=== PATIENT | female | born 1945 | race Caucasian/White ===

== ENCOUNTER 2019-11-20 13:13 | Outpatient (CLI) | payer MEDICARE, BC, SELFPAY ==
--- NOTE | ~2019-11-20 | CT_ITS ---
EXAMINATION: CTA chest PE protocol DATE: 11/20/2019 15:23 INDICATION: Malignant neoplasm of left upper lung TECHNIQUE: Computed tomography (CT) of the chest was performed with 100 cc Omnipaque 350 intravenous contrast. Automated exposure control and iterative reconstruction technique were employed. Exam dose: 389.94 mGy-cm total exam DLP. COMPARISON: 05/16/2019 CT chest FINDINGS: There is a soft tissue mass lesion of the left hilar area, with amputation of the left uppe r lobe pulmonary artery, consistent with malignant left upper lobe mass and/or radiation fibrosis, wi th left upper lobe atelectasis. Consider PET/CT scan correlation. Moderately large pericardial effusion. The lungs are otherwise clear. Heart size is within normal limits. No pleural effusion. No thoracic aortic aneurysm or dissection. IMPRESSION: Persistent left upper lobe perihilar mass and/or fibrosis with amputation of the left up per lobe pulmonary artery; consider PET/CT correlation Persistent moderately large pericardial effusion Reviewed, dictated and finalized at [facility]. Reviewed, dictated and finalized at location B. IMPRESSION: Persistent left upper lobe perihilar mass and/or fibrosis with amp utation of the left upper lobe pulmonary artery; consider PET/CT correlation Persistent moderately large pericardial effusion
--- NOTE | ~2019-11-20 | MMUS_ITS ---
EXAMINATION: MM diagnostic joshua RT w john, US breast RT limited HISTORY: Six-month follow-up for probably benign right breast focal asymmetry TECHNIQUE: Craniocaudal, mediolateral, and mediolateral oblique 3-D tomosynthesis images of the right breast were performed and synthetic 2-D images were generated. Spot compression views are also obtai taya. CAD analysis was submitted and interpreted. High resolution limited right breast ultrasound was performed. COMPARISON: 03/24/2019, 03/07/2019, 01/31/2018, 11/17/2016 BREAST PARENCHYMAL COMPOSITION: There are scattered areas of fibroglandular density. FINDINGS: MAMMOGRAPHIC FINDINGS: The previously described focal asymmetry of the upper inner right breast is not definitely identified . There is been no suspicious interval change. ULTRASOUND: There is no evidence of focal abnormal solid or cystic lesion in the vicinity of the previously quest ioned mammographic finding. There is a 4 mm round hypoechoic mass labeled at the 5:00 location near t he nipple with posterior shadowing but no internal vascularity. There is unchanged dense echotexture at the 3:00 location 3 cm from the nipple without discrete mass identified. IMPRESSION: 1. Probably benign right breast findings. 2. Recommend 6 month follow-up right diagnostic mammogram and ultrasound with particular attention to the ultrasound findings. BI-RADS category 3, probably benign findings. Reviewed, dictated and finalized at location A. IMPRESSION: 1. Probably benign right breast findings. 2. Recommend 6 month follow-up right diagnostic mammogram and ultrasound with p articular attention to the ultrasound findings. BI-RADS category 3, probably benign findings.
[2019-11-20 15:18] LABS: Estimated Glomerular Filt Rate 44
[2019-11-21 12:38] LABS: Prothrombin Time 13.2 Seconds (11.1-14.7)
== END 2019-11-20 13:14 | disposition home or self-care (01) ==
PROVIDERS: PCP Internal Medicine; Visit Provider Internal Medicine
DX: R06.02 Shortness of breath (principal); R92.8 Other abnormal and inconclusive findings on diagnostic imaging of breast; R91.8 Other nonspecific abnormal finding of lung field
CPT/HCPCS: 36415; 71275; 76642; 77061; 77065; 85610; G0279; Q9967

== ENCOUNTER 2019-11-21 11:52 | Outpatient (CLI) | payer MEDICARE, BC, SELFPAY ==
[2019-11-21 12:43] LABS: Rheumatoid Factor < 8.6 IU/ML (<12)
[2019-11-21 12:44] LABS: CRP 7.4 mg/dL (<1.0); Creatine Kinase 171 U/L (30-135)
[2019-11-21 12:51] LABS: Erythrocyte Sedimentation Rate 27 mm/hr (0-20)
[2019-11-21 12:53] LABS: Troponin I < 0.012 ng/mL (0.000-0.034)
== END 2019-11-21 11:53 | disposition home or self-care (01) ==
PROVIDERS: PCP Internal Medicine; Visit Provider Internal Medicine
DX: I31.3 Pericardial effusion (noninflammatory) (principal); R06.02 Shortness of breath
CPT/HCPCS: 36415; 82550; 84484; 85652; 86038; 86140; 86430

== ENCOUNTER 2020-01-22 08:55 | Outpatient (CLI) | payer MEDICARE, BC, SELFPAY ==
--- NOTE | ~2020-01-22 | PE_ITS ---
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 Plain 0.236 mCi of 18-fluorodeoxyglucose (18-FDG) was a dministered i.v. Low dose computed tomography (CT) images were acquired from the base of the brain to the proximal thighs for attenuation correction and anatomic localization. Positron emission tomograp hy (PET) images were acquired in the same distribution beginning 83 minutes after injection. The dose -length product (DLP) was 537.78 mGy-cm. COMPARISON: 11/20/2019, 02/06/2019 FINDINGS: Head/neck: No abnormal FDG uptake is identified. Chest: There are chronic left perihilar airspace opacities, which extend into the upper and lower lob es, which are not significantly changed. There is low level FDG activity in the left upper lobe porti on with an SUV max of 2.6. No new nodules or airspace opacities are identified. There is a trace left pleural effusion. A small pericardial effusion is also unchanged. The heart size is normal. Abdomen/pelvis/proximal thighs: Physiologic FDG activity is present in the bowel and urinary tract. T he liver, spleen, pancreas, gallbladder, and adrenal glands are normal. The left kidney is unremarkab le. There is a 3.3 cm cyst of the right kidney. No pathologically enlarged abdominal or pelvic lymph nodes are identified. There is no free intraperitoneal gas or evidence of bowel obstruction. Apparent wall thickening of the urinary bladder is likely related to incomplete distention. Musculoskeletal: No suspicious FDG uptake is identified. Mild uptake in the hips and shoulders likely relates to degenerative change. IMPRESSION: 1. Stable left perihilar airspace opacities, extending into the upper and lower lobes, with low-level FDG uptake. Findings are most consistent with treated malignancy and radiation fibrosis. 2. Small stable pericardial effusion. Reviewed, dictated and finalized at location B. IMPRESSION: 1. Stable left perihilar airspace opacities, extending into the upper and lower lobes, with low-level FDG uptake. Findings are most consistent with treated ma lignancy and radiation fibrosis. 2. Small stable pericardial effusion.
[2020-01-22 09:32] LABS: Glucose Point of Care 115 (65-105)
== END 2020-01-22 08:56 | disposition home or self-care (01) ==
PROVIDERS: PCP Internal Medicine; Visit Provider Internal Medicine Hematology & Oncology
DX: C34.12 Malignant neoplasm of upper lobe, left bronchus or lung (principal); I31.3 Pericardial effusion (noninflammatory)
CPT/HCPCS: 78815; A9552

== ENCOUNTER 2020-05-15 09:42 | Outpatient (CLI) | payer MEDICARE, BC, SELFPAY ==
[2020-05-15 11:00] LABS: Basophils Absolute Auto 0.1 K/mm3 (0.0-0.1); Basophils Percent Auto 0.8 % (0.2-1.2); Eosinophils Absolute Auto 0.2 K/mm3 (0-0.3); Eosinophils Percent Auto 2.5 % (0-4.4); Hematocrit 41.1 % (37.0-47.0); Hemoglobin 13.6 g/dL (12.0-15.0); Immature Granulocyte Absolute 0.02 K/mm3 (0.00-0.031); Immature Granulocyte Percent A 0.3 % (0-0.5); Lymphocytes Absolute Auto 1.35 K/mm3 (0.9-3.2); Lymphocytes Percent Auto 22.8 % (18.3-44.2); Mean Corpuscular HGB Conc 33.1 g/dl (32-36); Mean Corpuscular Hemoglobin 30.8 pg (26-34); Mean Platelet Volume 9.6 fl (7.4-10.4); Monocytes Absolute Auto 0.6 K/mm3 (0.1-0.6); Monocytes Percent Auto 10.2 % (2.6-8.5); Neutrophils Absolute Auto 3.7 K/mm3 (1.3-6.7); Neutrophils Percent Auto 63.4 % (45.5-73.1); Platelet Count Result 232 k/mm3 (150-375); Red Blood Count 4.42 M/mm3 (4.2-5.4); Red Cell Distribution Width 12.7 % (11.5-14.5); White Blood Count 5.9 K/mm3 (4.5-10.0)
[2020-05-15 11:29] LABS: Alanine Aminotransferase 22 U/L (4-35); Albumin Level 4.3 g/dL (3.5-5.1); Alkaline Phosphatase 95 U/L (38-126); Anion Gap 8 mmol/L (8-16); Aspartate Amino Transferase 30 U/L (14-36); Bilirubin,Total 0.5 mg/dL (0.2-1.3); Blood Urea Nitrogen 18 mg/dL (7-17); Calcium 10.1 mg/dL (8.4-10.2); Carbon Dioxide 26 mmol/L (22-30); Chloride 102 mmol/L (98-107); Estimated Glomerular Filt Rate 49; Glucose 108 mg/dL (65-105); Potassium 4.9 mmol/L (3.4-5.0); Sodium 136 mmol/L (137-145)
== END 2020-05-15 09:43 | disposition home or self-care (01) ==
PROVIDERS: PCP Internal Medicine; Visit Provider Internal Medicine Hematology & Oncology
DX: C34.12 Malignant neoplasm of upper lobe, left bronchus or lung (principal)
CPT/HCPCS: 36415; 80053; 85025

== ENCOUNTER 2020-09-13 08:27 | Outpatient (CLI) | payer MEDICARE, BC, SELFPAY ==
[2020-09-13 09:00] LABS: Hemoglobin A1C 5.3 % (<5.7)
[2020-09-13 09:07] LABS: Anion Gap 6 mmol/L (8-16); Blood Urea Nitrogen 21 mg/dL (7-17); Calcium 10.2 mg/dL (8.4-10.2); Carbon Dioxide 28 mmol/L (22-30); Chloride 101 mmol/L (98-107); Cholesterol 199 mg/dL (0-200); Estimated Glomerular Filt Rate 40; Glucose 103 mg/dL (65-105); Sodium 135 mmol/L (137-145); Triglycerides 169 mg/dL (<150)
[2020-09-13 09:09] LABS: HDL Direct 121 mg/dL; LDL Cholesterol Direct 43 mg/dL
[2020-09-13 09:28] LABS: Potassium 4.7 mmol/L (3.4-5.0)
[2020-09-13 09:39] LABS: Add Urine Microscopic? YES; Appearance Urine Cloudy (Clear); Bacteria Urine Trace /hpf; Bilirubin Urine Negative (Negative); Blood Urine Negative (Negative); Color Urine Yellow (Yellow); Glucose Urine UA Negative (Negative); Ketones Urine Negative (Negative); Leukocyte Esterase Ur 3+ LEU/UL (NEGATIVE); Mucus Urine Rare /lpf; Nitrate Urine Positive (Negative); Protein Urine 1+ mg/dL (Negative); Specific Grav Ur 1.014 (1.001-1.035); Squamous Epithelial Cell Urine Few /hpf (Few); Urobilinogen Urine Negative mg/dL (<2.0); WBC Clumps Urine Present /HPF; WBC Urine >75 /hpf (0-3)
[2020-09-13 10:10] LABS: Free T4 Free Thyroxine 0.95 ng/mL (0.78-2.19)
[2020-09-15 18:40] LABS: Homocysteine 11.7 umol/L (<10.4)
[2020-09-16 03:18] LABS: Vitamin D 1,25 (OH)2 Total 27 pg/mL (18-72); Vitamin D2 1,25 (OH)2 <8 pg/mL; Vitamin D3 1,25 (OH)2 27 pg/mL
== END 2020-09-13 08:28 | disposition home or self-care (01) ==
PROVIDERS: PCP Internal Medicine; Visit Provider Internal Medicine
DX: E55.9 Vitamin D deficiency, unspecified (principal); Z79.899 Other long term (current) drug therapy; R79.89 Other specified abnormal findings of blood chemistry; R73.02 Impaired glucose tolerance (oral); I10 Essential (primary) hypertension; E78.2 Mixed hyperlipidemia
CPT/HCPCS: 36415; 80048; 80061; 81001; 82652; 83036; 83090; 84439; 84443; 87077; 87086; 87088; 87186

== ENCOUNTER 2020-11-19 11:22 | Outpatient (CLI) | payer MEDICARE, BC, SELFPAY ==
--- NOTE | ~2020-11-19 | XR_ITS ---
XR chest 2V DATE: 11/19/2020 11:47 INDICATION: Malignant left upper lobe neoplasm TECHNIQUE: 2 views COMPARISON: 11/20/2019 CT pulmonary scan FINDINGS: There is abnormal left suprahilar soft tissue prominence consistent with left upper lobe ma lignancy. There is mild left basilar infiltrate and/or atelectasis. There is volume loss of the left lung compared to the right. Normal heart size. No pleural effusion or pulmonary vascular congestion or pneumothorax. IMPRESSION: Left upper lobe malignancy Mild left basilar infiltrate or atelectasis Reviewed, dictated and finalized at location A.
== END 2020-11-19 11:23 | disposition home or self-care (01) ==
LOC: ANHIMG 11:27
PROVIDERS: PCP Internal Medicine; Visit Provider Internal Medicine Hematology & Oncology
DX: C34.12 Malignant neoplasm of upper lobe, left bronchus or lung (principal)
CPT/HCPCS: 71046

== ENCOUNTER 2020-12-02 13:36 | Outpatient (CLI) | payer MEDICARE, BC, SELFPAY ==
[2020-12-02 13:49] LABS: Basophils Percent Auto 0.5 % (0.2-1.2); Eosinophils Absolute Auto 0.1 K/mm3 (0-0.3); Eosinophils Percent Auto 1.8 % (0-4.4); Hematocrit 40.2 % (37.0-47.0); Hemoglobin 13.3 g/dL (12.0-15.0); Immature Granulocyte Absolute 0.02 K/mm3 (0.00-0.031); Immature Granulocyte Percent A 0.3 % (0-0.5); Lymphocytes Absolute Auto 1.27 K/mm3 (0.9-3.2); Lymphocytes Percent Auto 16.2 % (18.3-44.2); Mean Corpuscular HGB Conc 33.1 g/dl (32-36); Mean Corpuscular Hemoglobin 30.4 pg (26-34); Mean Corpuscular Volume 91.8 fl (80-100); Mean Platelet Volume 9.5 fl (7.4-10.4); Monocytes Absolute Auto 0.7 K/mm3 (0.1-0.6); Monocytes Percent Auto 8.4 % (2.6-8.5); Neutrophils Absolute Auto 5.7 K/mm3 (1.3-6.7); Neutrophils Percent Auto 72.8 % (45.5-73.1); Platelet Count Result 194 k/mm3 (150-375); Red Blood Count 4.38 M/mm3 (4.2-5.4); Red Cell Distribution Width 13.2 % (11.5-14.5); White Blood Count 7.9 K/mm3 (4.5-10.0)
[2020-12-02 13:54] LABS: Blood Urea Nitrogen 30 mg/dL (8-26); Carbon Dioxide 25 mmol/L (22-30); Chloride 100 mmol/L (98-109); Estimated Glomerular Filt Rate 29; Glucose 148 mg/dL (70-105); Potassium 5.3 mmol/L (3.5-4.9); Sodium 134 mmol/L (138-146)
[2020-12-02 16:23] LABS: Alanine Aminotransferase 25 U/L (4-35); Albumin Level 4.3 g/dL (3.5-5.1); Alkaline Phosphatase 82 U/L (38-126); Anion Gap 9 mmol/L (8-16); Aspartate Amino Transferase 29 U/L (14-36); Bilirubin,Total 0.6 mg/dL (0.2-1.3); Blood Urea Nitrogen 28 mg/dL (7-17); Calcium 10.2 mg/dL (8.4-10.2); Carbon Dioxide 25 mmol/L (22-30); Chloride 98 mmol/L (98-107); Estimated Glomerular Filt Rate 34; Glucose 143 mg/dL (65-110); Potassium 5.5 mmol/L (3.4-5.0); Sodium 132 mmol/L (137-145)
== END 2020-12-02 13:37 | disposition home or self-care (01) ==
LOC: ANHLAB 13:39
PROVIDERS: PCP Internal Medicine; Visit Provider Internal Medicine Hematology & Oncology
DX: C34.12 Malignant neoplasm of upper lobe, left bronchus or lung (principal)
CPT/HCPCS: 36415; 80048; 80053; 85025

== ENCOUNTER 2020-12-20 15:43 | Outpatient (CLI) | payer MEDICARE, BC, SELFPAY ==
--- NOTE | ~2020-12-20 | US_ITS ---
EXAMINATION: US renal BI DATE: 12/20/2020 16:25 INDICATION: Decreased kidney function. TECHNIQUE: Multiple ultrasound grayscale images of the kidneys were obtained. COMPARISON: PET CT 01/22/2020 FINDINGS: The right kidney measures 9.0 x 5.2 x 4.0 cm. The left kidney measures 9.3 x 4.6 x 4.4 cm. The kidney s demonstrate normal parenchymal echogenicity. There is a 2.8 cm cyst in right kidney. There is no hy dronephrosis. The bladder is normal. IMPRESSION: 1. Normal kidney sizes. No hydronephrosis. Reviewed, dictated and finalized at location A.
== END 2020-12-20 15:44 | disposition home or self-care (01) ==
LOC: ANHIMG 15:45
PROVIDERS: PCP Internal Medicine; Visit Provider Internal Medicine
DX: R79.89 Other specified abnormal findings of blood chemistry (principal)
CPT/HCPCS: 76775

== ENCOUNTER 2021-01-10 08:51 | Outpatient (CLI) | payer MEDICARE, BC, SELFPAY ==
--- NOTE | ~2021-01-10 | MM_ITS ---
EXAMINATION: MM screening joshua BI w john HISTORY: Screening TECHNIQUE: Craniocaudal and mediolateral oblique 3-D tomosynthesis images were obtained and synthetic 2-D images were generated. CAD analysis was submitted and interpreted. COMPARISON: Comparison to multiple prior studies sequentially, with oldest reviewed study dated 09/2015. BREAST PARENCHYMAL COMPOSITION: There are scattered areas of fibroglandular density. FINDINGS: There is a developing mass in the upper outer quadrant of the right breast, middle third. A dditional bilateral breast asymmetries are stable. No new masses, calcifications or architectural dis tortion in the left breast to suggest malignancy. IMPRESSION: 1. Developing right breast asymmetry, upper outer quadrant middle third. 2. Additional mammographic views and possible breast ultrasound are recommended. BI-RADS Category 0: Incomplete: Needs additional imaging evaluation. Reviewed, dictated and finalized at location A. IMPRESSION: 1. Developing right breast asymmetry, upper outer quadrant middle third. 2. Additional mammographic views and possible breast ultrasound are recommended . BI-RADS Category 0: Incomplete: Needs additional imaging evaluation.
== END 2021-01-10 08:52 | disposition home or self-care (01) ==
PROVIDERS: PCP Internal Medicine; Visit Provider Internal Medicine
DX: Z12.31 Encounter for screening mammogram for malignant neoplasm of breast (principal); R92.8 Other abnormal and inconclusive findings on diagnostic imaging of breast
CPT/HCPCS: 77063; 77067

== ENCOUNTER 2021-05-16 13:36 | Outpatient (CLI) | payer MEDICARE, BC, SELFPAY ==
--- NOTE | ~2021-05-16 | CT_ITS ---
EXAMINATION: CT diagnostic chest wo con EXAM DATE: 05/16/2021 14:13 INDICATION: Malignant Neoplasm Of Upper Lobe Of Left Lung . TECHNIQUE: Spiral CT of the chest without contrast. Axial, coronal and sagittal images of the chest were reviewed. Coronal maximum intensity pixel images of chest reviewed. The dose-length product ( DLP) for this examination was 165.71 mGy-cm. The exposure was tailored according to patient size (au to mA exposure control), and iterative reconstruction (ASIR) was used as additional dose reduction te chnique. Comparison is made to prior examination from 11/20/2019. FINDINGS: Again there is infiltrative left suprahilar centered malignancy, soft tissue surrounding b ronchovascular structures extending into the hilum. Difficult to measure this given its insinuation, but suprahilar component approximately 4.5 x 3.2 cm which is unchanged. Appearance is consistent with treated malignancy. There is a moderate pericardial effusion, with interval improvement compared to prior study. No pleural effusions. There is no mediastinal, hilar or axillary lymphadenopathy. Th ere is no pneumothorax. Heart normal in size. No evidence of coronary arterial calcification. Up per abdomen is unremarkable. There is mild thoracic spondylosis without osteoblastic or osteolytic lesions identified. IMPRESSION: 1. Stable infiltrative right hilar/suprahilar masslike opacity, treated malignancy. 2. Moderate pericardial effusion with mild improvement. Reviewed, dictated and finalized at location A. MECHANICAL ENGINEER IMPRESSION: 1. Stable infiltrative right hilar/suprahilar masslike opacity, treated malign sharif. 2. Moderate pericardial effusion with mild improvement.
== END 2021-05-16 13:37 | disposition home or self-care (01) ==
LOC: ANHIMG 13:39
PROVIDERS: PCP Internal Medicine; Visit Provider Internal Medicine Hematology & Oncology
DX: C34.12 Malignant neoplasm of upper lobe, left bronchus or lung (principal); I31.3 Pericardial effusion (noninflammatory)
CPT/HCPCS: 71250

== ENCOUNTER 2021-05-24 13:41 | Outpatient (CLI) | payer MEDICARE, BC, SELFPAY ==
[2021-05-24 14:13] LABS: Basophils Percent Auto 0.6 % (0.2-1.2); Eosinophils Absolute Auto 0.2 K/mm3 (0-0.3); Eosinophils Percent Auto 2.2 % (0-4.4); Hematocrit 42.6 % (37.0-47.0); Hemoglobin 13.5 g/dL (12.0-15.0); Immature Granulocyte Absolute 0.02 K/mm3 (0.00-0.031); Immature Granulocyte Percent A 0.3 % (0-0.5); Lymphocytes Percent Auto 19.3 % (18.3-44.2); Mean Corpuscular HGB Conc 31.7 g/dl (32-36); Mean Corpuscular Hemoglobin 30.4 pg (26-34); Mean Corpuscular Volume 95.9 fl (80-100); Mean Platelet Volume 9.4 fl (7.4-10.4); Monocytes Absolute Auto 0.7 K/mm3 (0.1-0.6); Monocytes Percent Auto 10.5 % (2.6-8.5); Neutrophils Absolute Auto 4.5 K/mm3 (1.3-6.7); Neutrophils Percent Auto 67.1 % (45.5-73.1); Platelet Count Result 200 k/mm3 (150-375); Red Blood Count 4.44 M/mm3 (4.2-5.4); Red Cell Distribution Width 13.4 % (11.5-14.5); White Blood Count 6.8 K/mm3 (4.5-10.0)
[2021-05-24 14:19] LABS: Blood Urea Nitrogen 29 mg/dL (8-26); Carbon Dioxide 26 mmol/L (22-30); Chloride 101 mmol/L (98-109); Estimated Glomerular Filt Rate 34; Glucose 137 mg/dL (70-105); Potassium 5.2 mmol/L (3.5-4.9); Sodium 136 mmol/L (138-146)
[2021-05-24 16:19] LABS: Alanine Aminotransferase 28 U/L (4-35); Albumin Level 4.4 g/dL (3.5-5.1); Alkaline Phosphatase 92 U/L (38-126); Anion Gap 8 mmol/L (8-16); Aspartate Amino Transferase 42 U/L (14-36); Bilirubin,Total 0.5 mg/dL (0.2-1.3); Blood Urea Nitrogen 29 mg/dL (7-17); Calcium 10.2 mg/dL (8.4-10.2); Carbon Dioxide 26 mmol/L (22-30); Chloride 100 mmol/L (98-107); Estimated Glomerular Filt Rate 34; Glucose 138 mg/dL (65-110); Potassium 5.3 mmol/L (3.4-5.0); Sodium 134 mmol/L (137-145)
== END 2021-05-24 13:42 | disposition home or self-care (01) ==
PROVIDERS: PCP Internal Medicine; Visit Provider Internal Medicine Hematology & Oncology
DX: C34.12 Malignant neoplasm of upper lobe, left bronchus or lung (principal)
CPT/HCPCS: 36415; 80053; 85025

== ENCOUNTER 2021-11-28 15:56 | Outpatient (CLI) | payer MEDICARE, OTHER, SELFPAY ==
--- NOTE | ~2021-11-28 | XR_ITS ---
XR chest 2V DATE: 11/28/2021 16:20 INDICATION: Shortness of breath. History of left lung cancer. TECHNIQUE: PA and lateral views COMPARISON: 05/16/2021 CT chest 11/19/2020 2 view chest FINDINGS: Persistent left upper lobe mass density with left upper lobe atelectasis, elevation of left hilum. No significant change is noted since 11/29/2020. There is some tenting of the left diaphragm and suggestion of some mild atelectasis at the left lung base. The right lung is clear. No right pleural effusion. Heart size is within normal range. No pneumothorax. IMPRESSION: No significant change since 11/19/2020; persistent left upper lobe mass density, left upper lobe atelectasis Reviewed, dictated and finalized at location B. IMPRESSION: No significant change since 11/19/2020; persistent left upper lobe ma ss density, left upper lobe atelectasis
[2021-11-28 17:07] LABS: Basophils Percent Auto 0.5 % (0.2-1.2); Eosinophils Absolute Auto 0.2 K/mm3 (0-0.3); Eosinophils Percent Auto 2.1 % (0-4.4); Hemoglobin 11.9 g/dL (12.0-15.0); Immature Granulocyte Absolute 0.04 K/mm3 (0.00-0.031); Immature Granulocyte Percent A 0.5 % (0-0.5); Lymphocytes Absolute Auto 1.36 K/mm3 (0.9-3.2); Lymphocytes Percent Auto 15.5 % (18.3-44.2); Mean Corpuscular HGB Conc 33.1 g/dl (32-36); Mean Corpuscular Volume 90.7 fl (80-100); Mean Platelet Volume 9.1 fl (7.4-10.4); Monocytes Percent Auto 11.3 % (2.6-8.5); Neutrophils Absolute Auto 6.2 K/mm3 (1.3-6.7); Neutrophils Percent Auto 70.1 % (45.5-73.1); Platelet Count Result 355 k/mm3 (150-375); Red Blood Count 3.97 M/mm3 (4.2-5.4); Red Cell Distribution Width 12.6 % (11.5-14.5); White Blood Count 8.8 K/mm3 (4.5-10.0)
[2021-11-28 17:36] LABS: D Dimer 13.52 ug/mL (<0.48)
== END 2021-11-28 15:57 | disposition home or self-care (01) ==
PROVIDERS: PCP Internal Medicine; Visit Provider Internal Medicine
DX: R06.02 Shortness of breath (principal); R73.02 Impaired glucose tolerance (oral)
CPT/HCPCS: 36415; 71046; 85025; 85380

== ENCOUNTER 2021-11-29 08:31 | Outpatient (CLI) | payer MEDICARE, OTHER, SELFPAY ==
--- NOTE | ~2021-11-29 | CT_ITS ---
EXAMINATION: CTA chest PE protocol DATE: 11/29/2021 09:03 INDICATION: Shortness of breath. Recent travel. TECHNIQUE: Computed tomography angiography (CTA) of the chest was performed with 100 mL Omnipaque-350 intravenous contrast timed to evaluate the pulmonary arteries. Coronal maximum intensity projection 3D-reconstructions were created by the technologist. Automated exposure control and iterative reconst ruction technique were employed. Exam dose: 361.85 mGy-cm total exam DLP. COMPARISON: 11/28/2021 PA and lateral chest 05/16/2021 CT chest FINDINGS: There is diagnostic contrast enhancement of the pulmonary arteries and no evidence of pulmo nary embolism. There is amputation of the left upper lobe pulmonary artery and left upper lobe bronchus by large sof t tissue mass consistent with left upper lobe malignancy, with associated left upper lobe atelectasis . There is moderate pericardial effusion. Mild left and minimal right pleural effusion. Heart size is within normal limits. No thoracic aortic aneurysm or dissection is detected. Right lung is clear. Postobstructive left upper lobe atelectasis. Normal pulmonary infiltrate or cons olidation is noted otherwise. Approximately 9 mm (3.5 cm right renal cysts. Mild bilateral adrenal hypertrophy. Severe degenerative disc disease in lower cervical spine. No suspicious osteolytic or osteosclerotic lesions are noted. IMPRESSION: No evidence of pulmonary aneurysm Large left upper lobe pulmonary malignancy with amputation of left upper lobe pulmonary artery and br onchi can with associated postobstructive left upper lobe atelectasis Moderate pericardial effusion Small pleural effusions, left greater than right Reviewed, dictated and finalized at [facility]. Reviewed, dictated and finalized at location B. IMPRESSION: No evidence of pulmonary aneurysm Large left upper lobe pulmonary malignancy with amputation of left upper lobe p ulmonary artery and bronchi can with associated postobstructive left upper lobe atelectasis Moderate pericardial effusion Small pleural effusions, left greater than right
[2021-11-29 08:57] LABS: Estimated Glomerular Filt Rate 34
== END 2021-11-29 08:32 | disposition home or self-care (01) ==
LOC: ANHIMG 08:34
PROVIDERS: PCP Internal Medicine; Visit Provider Internal Medicine
DX: R06.02 Shortness of breath (principal); R79.89 Other specified abnormal findings of blood chemistry; I31.3 Pericardial effusion (noninflammatory); J90 Pleural effusion, not elsewhere classified
CPT/HCPCS: 71275; Q9967

== ENCOUNTER 2021-12-22 16:50 | Outpatient (CLI) | payer MEDICARE, OTHER, SELFPAY ==
--- NOTE | ~2021-12-22 | US_ITS ---
EXAMINATION:US venous doppler LE BI INDICATION:Abnormal laboratory values. TECHNIQUE: Multiple grayscale, color flow and Doppler images of the right and left lower extremity de ep venous systems were obtained and reviewed. COMPARISON:No prior studies for comparison. FINDINGS: The common femoral, superficial femoral and popliteal veins demonstrate normal respiratory variation, augmentation and compressibility. Color flow is also seen within the posterior tibial, pe roneal, greater saphenous and profunda veins. IMPRESSION: 1: No lower extremity deep venous thrombosis. Reviewed, dictated and finalized at location A.
== END 2021-12-22 16:51 | disposition home or self-care (01) ==
PROVIDERS: PCP Internal Medicine; Visit Provider Internal Medicine
DX: R79.89 Other specified abnormal findings of blood chemistry (principal)
CPT/HCPCS: 93970

== ENCOUNTER 2022-01-03 09:00 | Outpatient (CLI) | payer MEDICARE, OTHER, SELFPAY ==
--- NOTE | ~2022-01-03 | PE_ITS ---
EXAMINATION: PET skull to mid thigh DATE: 01/03/2022 10:49 INDICATION: Malignant neoplasm of the upper lobe of the left lung. TECHNIQUE: Blood glucose level was 130 mg/dL. 10.948 mCi of 18-fluorodeoxyglucose (18-FDG) was admini stered i.v. Low dose computed tomography (CT) images were acquired from the base of the brain to the proximal thighs for attenuation correction and anatomic localization. Positron emission tomography (P ET) images were acquired in the same distribution beginning 66 minutes after injection. Images includ ing fused PET/CT images were reconstructed in axial, coronal, and sagittal planes. Automated exposure control technique was employed. The dose-length product was 757.62mGy-cm. COMPARISON: Chest CT dated 11/29/2021 and PET/CT dated 01/22/2020 FINDINGS: Head/neck: There is symmetric increased activity in the oral cavity and ocular muscles without CT correlate, lik arti physiologic. Mild increased mucosal FDG uptake at the periphery of the completely opacified right maxillary sinus. There is mild thickening and sclerosis of the sinus wills consistent with chronic s inusitis. There is asymmetric thickening of the left vocal cord and left aryepiglottic fold without c orresponding asymmetric increased left-sided FDG uptake. No pathologically enlarged cervical lymphade nopathy or other suspicious foci of increased FDG uptake in the visualized head or neck. Chest: Small bilateral posterior layering pleural effusions, left greater than right. There is volume loss i n the left lung with chronic triangular region of consolidation in the anteromedial left upper lobe c onsistent with treated malignancy and secondary radiation fibrosis. There is persistent relatively un iform mild increased FDG uptake associated with the region of consolidation with maximal SUV of 3.1. No other suspicious pulmonary nodules, pneumonia or pulmonary edema. Heart size is normal. Chronic mo derate sized pericardial effusion without associated increased FDG activity. No pathologically enlarg ed or FDG avid thoracic lymphadenopathy. Abdomen/pelvis/proximal thighs: Physiologic renal accumulation and excretion of FDG activity in the kidneys, bladder and along portio ns of ureters. 4.4 cm right renal cyst. Normal degree and heterogenous pattern of increased uptake th roughout the liver without radiologic correlate or dominant FDG avid lesion. The gallbladder, pancrea s, spleen and bilateral adrenal glands are normal. Mild uptake scattered throughout the bowels withou t radiologic correlate, also likely physiologic. There is moderate colonic diverticulosis with a sigm oid predominance. There is no adjacent inflammatory change to suggest diverticulitis. No other abnor mal foci of increased FDG uptake or pathologically enlarged lymphadenopathy in the abdomen, pelvis or proximal thighs. Musculoskeletal: Scattered degenerative skeletal changes.. Diffuse mild synovial uptake at the glenohumeral joints. Mi ld increased uptake overlying the bilateral greater trochanters consistent with mild trochanteric bur sitis. No suspicious lytic, blastic or FDG avid bone lesions. IMPRESSION: 1. No significant change in relatively uniform mild uptake throughout a region of consolidation with associated volume loss and architectural distortion at the anteromedial left upper lobe consistent wi th chronic treated malignancy with radiation fibrosis. No evident metastatic disease. 2. Nonspecific asymmetric thickening of the left vocal cord and aryepiglottic fold but without focal asymmetric increased FDG uptake to further elevate suspicion for malignancy. Consider bronchoscopy fo r direct visualization. 3. Chronic moderate-sized pericardial effusion. 4. Small bilateral pleural effusions, left greater than right. 5. Chronic right maxillary sinusitis. Reviewed, dictated and f
[2022-01-03 09:20] LABS: Glucose Point of Care 130 mg/dl (65-105)
== END 2022-01-03 09:01 | disposition home or self-care (01) ==
PROVIDERS: PCP Internal Medicine; Visit Provider Internal Medicine Hematology & Oncology
DX: C34.12 Malignant neoplasm of upper lobe, left bronchus or lung (principal)
CPT/HCPCS: 78815; A9552

== ENCOUNTER 2022-01-10 09:20 | Outpatient (CLI) | payer MEDICARE, OTHER, SELFPAY ==
[2022-01-10 10:19] LABS: Appearance Urine Cloudy (Clear); Bilirubin Urine Negative (Negative); Color Urine Yellow (Yellow); Glucose Urine UA 3+ mg/dL (Negative); Ketones Urine Trace mg/dL (Negative); Leukocyte Esterase Ur 2+ LEU/UL (Negative); Nitrate Urine Negative (Negative); Protein Urine 1+ mg/dL (Negative); Specific Grav Ur 1.015 (1.001-1.035); Urobilinogen Urine 0.2 mg/dL (<2.0)
[2022-01-10 10:23] LABS: Bacteria Urine Trace /hpf; Squamous Epithelial Cell Urine Rare /hpf (Few); WBC Urine >75 /hpf
[2022-01-10 10:27] LABS: Add Urine Microscopic? YES; Blood Urine Trace-Intact (Negative)
== END 2022-01-10 09:21 | disposition home or self-care (01) ==
LOC: ANHLAB 09:22
PROVIDERS: PCP Internal Medicine; Visit Provider Internal Medicine
DX: R39.9 Unspecified symptoms and signs involving the genitourinary system (principal)
CPT/HCPCS: 81001; 87077; 87086; 87186

== ENCOUNTER 2022-05-17 13:06 | Outpatient (CLI) | payer MEDICARE, OTHER, SELFPAY ==
--- NOTE | ~2022-05-17 | XR_ITS ---
XR chest 2V DATE: 05/17/2022 13:25 INDICATION: Malignant neoplasm left upper lobe TECHNIQUE: PA and lateral views COMPARISON: 11/29/2021 CTA chest 11/28/2021 2 view chest FINDINGS: Persistent abnormal left suprahilar soft tissue mass density, likely due to combination of left upper lobe pulmonary neoplasm and left upper lobe postobstructive atelectasis. Enlarged cardiac silhouette, which may be due to previously documented pericardial effusion on 022 CT chest examination. There is mild infiltrate or atelectasis at the left lung base, left lower lobe. There is minimal if a ny left pleural effusion. No right pleural effusion. The right lung appears clear. No pulmonary vascu lar congestion or pneumothorax. No suspicious osteolytic or osteoblastic lesions are noted. IMPRESSION: Little interval change since 11/28/2021 Reviewed, dictated and finalized at location B. OL AGE PROGRAM ASSOCIATE
== END 2022-05-17 13:07 | disposition home or self-care (01) ==
LOC: ANHIMG 13:12
PROVIDERS: PCP Internal Medicine; Visit Provider Internal Medicine Hematology & Oncology
DX: C34.12 Malignant neoplasm of upper lobe, left bronchus or lung (principal)
CPT/HCPCS: 71046

== ENCOUNTER 2022-07-31 07:46 | Outpatient (CLI) | payer MEDICARE, OTHER, SELFPAY ==
[2022-07-31 08:54] LABS: Prothrombin Time 12.4 Seconds (11.1-14.7)
[2022-07-31 08:55] LABS: Partial Thromboplastin Time 24.9 SECONDS (22.3-36.8)
[2022-07-31 08:57] LABS: Anion Gap 4 mmol/L (8-16); Blood Urea Nitrogen 20 mg/dL (7-17); Calcium 10.1 mg/dL (8.4-10.2); Carbon Dioxide 28 mmol/L (22-30); Chloride 107 mmol/L (98-107); Estimated Glomerular Filt Rate 40; Glucose 117 mg/dL (65-110); Potassium 5.3 mmol/L (3.4-5.0); Sodium 139 mmol/L (137-145)
== END 2022-07-31 07:47 | disposition home or self-care (01) ==
LOC: ANHSURGERY 07:51
PROVIDERS: Anesthesiology; PCP Internal Medicine; Visit Provider Otolaryngology
DX: E11.9 Type 2 diabetes mellitus without complications (principal); N18.9 Chronic kidney disease, unspecified; Z01.818 Encounter for other preprocedural examination
CPT/HCPCS: 36415; 80048; 85610; 85730

== ENCOUNTER 2022-08-01 01:27 | Day surgery (SDC) | payer MEDICARE, OTHER, SELFPAY ==
[2022-07-21 16:03] VITALS: BMI 25.4
--- NOTE | 2022-07-21 16:15 | PC.NURSE ---
PRE-OP INSTRUCTIONS, PLEASE READ CAREFULLY Report to the Outpatient Waiting Room, entrance under the green pavilion located off [facility], at time _12:30PM_ on date _08/01/22_. Planned Procedure Time: _2:30 PM__. Time changes happen often and if your time is changed the preop area will call you the afternoon before. - You and your visitor will be asked to self-screen and do not enter if you have any COVID symptoms. - Only one visitor is requested with a max of two and NO children visitors are allowed at this time. - The patient visitor may be requested to leave or wait in car when not with patient due to distancing restrictions. - A mask is optional within the hospital at this time. Patients may have clear liquids (water, carbonated beverages, clear teas, apple juice) until 3 hours prior to surgery (1130 AM) with a maximum of 20 ounces. - No food from midnight until time of surgery Take the following medications with a SIP of water the morning of surgery: _ANORO INHALER_ DO NOT STOP ANY OF YOUR OTHER PRESCRIPTION MEDICATIONS PRIOR TO SURGERY ?EXCEPT THE FOLLOWING Medications to discontinue _ASPIRIN PER DR. MAZARIEGOS'S INSTRUCTIONS__, Date to take last dose Please no make-up, nail arabic, hairspray, perfume, deodorant, or body powder the day of surgery. No jewelry (including any body piercings) or valuables the day of surgery, leave them at home. Please take a shower or bath the night before, or the morning of, surgery with an antibacterial soap. Wear comfortable, loose fitting clothing. - Jewelry must be removed prior to entering the operating room. Rings and piercings that are not removed may be cut off. - The hospital will not accept responsibility for valuables. - Please leave all valuables, including medications, at home the day of surgery. If you are going home after surgery, a licensed transportation driver must drive you home. - NO public transportation without another adult if you receive anesthesia. - We recommend that an adult stay with you for 24 hours following discharge. - We also recommend that you do not drive, make important decision, drink alcoholic beverages, or take any drugs that were not prescribed by your health care provider for at least 24 hours after your discharge time. Follow any additional instructions given to you from your surgeon. If you or anyone in your household have experienced Covid symptoms in the past week, please notify your surgeon or the nurse liaison at the phone number below for possible testing. Telephone instructions given to _PATIENT_and asked if any additional questions and then verbalized understanding. Patient advised to call surgeon office or pre surgery nurse liaison [phone] if any additional questions.
--- NOTE | 2022-07-31 07:54 | PM.IMHP ---
H&P: HPI History of Present Illness Date/Time: 07/31/22 07:54 Chief Complaint: Right-sided maxillary sinusitis Narrative: planned procedure Review of Systems Review of Systems: All systems reviewed & are unremarkable except as noted in HPI and below [facility] Past Medical History Medical History Abnormal mammogram Acute ear pain Benign essential hypertension Bilateral hip pain Bilateral leg cramps BMI 25.0-25.9,adult BMI 26.0-26.9,adult BMI 27.0-27.9,adult BMI 28.0-28.9,adult Cardiac murmur Cataracts, bilateral Chronic hoarseness CKD (chronic kidney disease) CKD (chronic kidney disease), stage I COPD (chronic obstructive pulmonary disease) COVID-19 vaccine series completed Diastolic dysfunction DJD (degenerative joint disease), multiple sites Dysfunction of left eustachian tube Dyspepsia Elevated homocysteine Encounter for Medicare annual wellness exam Encounter for routine adult health examination with abnormal findings Encounter for routine adult health examination without abnormal findings Follow up Fungal infection Gastric polyp Hearing loss Hearing loss Hx of cancer of lung Hx of hyperkalemia IGT (impaired glucose tolerance) 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 Pericardial effusion Rash Right shoulder tendonitis Seasonal allergies Sebaceous cyst Sinusitis SOB (shortness of breath) Thyroid nodule UTI (urinary tract infection) UTI symptoms Vitamin D deficiency Vocal cord anomaly Watery eyes Surgical History Surgical History S/P cataract extraction Family History Family History Father Hypertension Family history of elevated blood lipids Cerebrovascular accident Family history of heart disease in male family member before age 55 Family history of hypercholesterolemia Mother Family history of malignant neoplasm of uterus Family history of gastrointestinal disorder Family history of malignant neoplasm Social History Social History Smoking packs per day: 1 Smoking cigarettes per day: 20.0 Years smoked: 10 Smoking pack-years: 10.00 Smoking status: Former smoker Tobacco type: cigarettes Second hand tobacco smoke exposure: No Smoking end date: 05/14/82 Alcohol intake: current Drinks per week: 21 Alcohol use details: 3 GLASSES WINE DAILY Substance use: never Substance use type: does not use Lack of Transportation: No Lack of Food: Never True Current Housing: I Have Housing Concerned About Future Housing: No Difficulty Paying Gas/Electric Bills: No Difficulty Paying for Meds: No Currently Unemployed: No Education: Master's Degree or Higher Difficulty w/ Childcare or Family Care: No Living arrangements: alone Gender identity (if verbalized by the patient): Female Spiritual care concerns: No Meds Home Medications and Allergies Home Medications Medication Instructions Recorded Confirmed Type aspirin 81 mg tablet,delayed 81 mg PO DAILY 04/09/19 07/21/22 History release (Adult Low Dose Aspirin) mecobalamin (vitamin B12) 1,000 1,000 mcg sublingual DAILY 04/09/19 07/21/22 History mcg disintegrating tablet,sublingual folic acid 400 mcg tablet 1.4 mg PO DAILY 07/18/19 07/21/22 History cholecalciferol (vitamin D3) 50 50 mcg PO DAILY 05/19/20 07/21/22 History mcg (2,000 unit) capsule magnesium 250 mg tablet 250 mg PO DAILY 05/19/20 07/21/22 History zinc 50 mg tablet 50 mg PO DAILY 05/19/20 07/21/22 History atorvastatin 80 mg tablet See Rx Instructions .Route 03/23/22 07/21/22 Rx .COMPLEX #90 tabs diltiazem HCl 240 mg capsule,24 See Rx Instructions .Route 06/05/22 07/21/22 Rx hr,extended release (Tiadylt ER) .COMPLEX #90 caps montelukast 10 mg tablet 10 mg PO DAILY #30 tabs 05/15
--- NOTE | 2022-07-31 10:05 | WPDANESEPPF ---
Anes - Initial Pre Proc Eval Procedure: Operation Date: 08/01/22 14:00 Proposed Procedures p Right Endoscopic Maxillary Antrostomy with Tissue Removal, Right Middle Turbinectomy - Gerard Perla MD Date/Time: 07/31/22 10:05 Surgeon: Gerard Perla MD Pre Op Diagnosis: sinusitis Patient Data Age: 77 Gender: F Height: 1.7 m Weight: 73.63 kg Allergies Allergy/AdvReac Type Severity Reaction Status Date / Time brimonidine [From Alphagan P] AdvReac EXTREME Verified 08/01/22 11:05 RED EYES Home Medications Medication Instructions Recorded Confirmed Type aspirin 81 mg tablet,delayed 81 mg PO DAILY 04/09/19 08/01/22 History release (Adult Low Dose Aspirin) mecobalamin (vitamin B12) 1,000 1,000 mcg sublingual DAILY 04/09/19 08/01/22 History mcg disintegrating tablet,sublingual folic acid 400 mcg tablet 1.4 mg PO DAILY 07/18/19 08/01/22 History cholecalciferol (vitamin D3) 50 50 mcg PO DAILY 05/19/20 08/01/22 History mcg (2,000 unit) capsule magnesium 250 mg tablet 250 mg PO DAILY 05/19/20 08/01/22 History zinc 50 mg tablet 50 mg PO DAILY 05/19/20 08/01/22 History atorvastatin 80 mg tablet See Rx Instructions .Route 03/23/22 08/01/22 Rx .COMPLEX #90 tabs diltiazem HCl 240 mg capsule,24 See Rx Instructions .Route 06/05/22 08/01/22 Rx hr,extended release (Tiadylt ER) .COMPLEX #90 caps montelukast 10 mg tablet 10 mg PO DAILY #30 tabs 06/07/22 08/01/22 Rx (Singulair) Glyxambi 10 mg-5 mg tablet See Rx Instructions .Route 06/12/22 08/01/22 Rx (empagliflozin-linagliptin) .COMPLEX #90 tabs doxycycline hyclate 100 mg capsule 100 mg PO DAILY #10 caps 06/21/22 08/01/22 Rx ipratropium bromide 21 mcg (0.03 2 spray intranasal TID #30 mL 07/14/22 08/01/22 Rx %) nasal spray umeclidinium 62.5 mcg-vilanterol See Rx Instructions .Route 07/20/22 08/01/22 Rx 25 mcg/actuation powdr for .COMPLEX #60 ea inhalation (Anoro Ellipta) Patient hx anesthesia problems: none Family hx anesthesia problems: none Results Review: All pre-operative results and documents have been reviewed as part of the pre-operative evaluation. [facility] Past Medical History Medical History Abnormal mammogram Acute ear pain Benign essential hypertension Bilateral hip pain Bilateral leg cramps BMI 25.0-25.9,adult BMI 26.0-26.9,adult BMI 27.0-27.9,adult BMI 28.0-28.9,adult Cardiac murmur Cataracts, bilateral Chronic hoarseness CKD (chronic kidney disease) CKD (chronic kidney disease), stage I COPD (chronic obstructive pulmonary disease) COVID-19 vaccine series completed Diastolic dysfunction DJD (degenerative joint disease), multiple sites Dysfunction of left eustachian tube Dyspepsia Elevated homocysteine Encounter for Medicare annual wellness exam Encounter for routine adult health examination with abnormal findings Encounter for routine adult health examination without abnormal findings Follow up Fungal infection Gastric polyp Hearing loss Hearing loss Hx of cancer of lung Hx of hyperkalemia IGT (impaired glucose tolerance) 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 On assisted drug therapy Pericardial effusion Rash Right shoulder tendonitis Seasonal allergies Sebaceous cyst Sinusitis SOB (shortness of breath) Thyroid nodule UTI (urinary tract infection) UTI symptoms Vitamin D deficiency Vocal cord anomaly Watery eyes Surgical History Surgical History S/P cataract extraction Family History Family History Father Hypertension Family history of elevated blood lipids Cerebrovascular accident Family history of heart disease in male family member before age 55 Family history of hypercholesterolemia Mother Family history of malignant neoplasm of uterus Family history of gastrointestinal disorder Family history of malignant neoplasm Social
[2022-08-01] VITALS (8 sets, daily range): BP systolic 139–161; BP diastolic 65–74; PULSE 60–64; RESP 14–20; TEMP 36.3–36.7; O2SAT 98–100
--- NOTE | 2022-08-01 07:13 | WPDHPUPDATE1 ---
History and Physical Update Update Date/Time: 08/01/22 07:13 History and Physical has been reviewed, including an updated exam of the patient. There are NO changes in the patient's condition. Risks, benefits, and alternatives have been discussed and questions answered. Patient agrees to proceed with procedure.
[2022-08-01] MEDS: ACETAMINOPHEN 500 MG TABLET 1000 MG PO (11:13)
[2022-08-01] MEDS: LACTATED RINGERS 1,000 ML 30 ML IV CONT ×2 (11:40→14:22)
[2022-08-01] MEDS: ceFAZolin 2 GM/D5W 50 ML 2 GM/50 ML BAG IVPB (13:16)
[2022-08-01] MEDS: OXYMETAZOLINE HCL 0.05% NAS 15 ML BTL (*BKC) 1 SPRAY NASAL (13:44)
[2022-08-01] MEDS: LIDO 1%/EPINEPHRINE 1:100,000 20 ML VIAL 10 ML INFILTRATE (13:46)
[2022-08-01 14:08] LABS: Glucose Point of Care 121 mg/dl (65-105)
[2022-08-01] MEDS: oxyCODONE HCL (*CRX) 2.5 MG TAB IR PO (15:21)
--- NOTE | 2022-08-02 10:31 | W.PM.PROC2 ---
Procedure Note - Detailed Date of Procedure 08/02/22 Pre-op Diagnosis sinusitis Right-sided Post-op Diagnosis Same Procedure Performed right-sided endoscopic maxillary antrostomy without tissue removal right-sided middle turbinectomy Surgeon Gerard Perla MD Anesthesia General Indications right-sided maxillary sinusitis and obstructive turbinate Findings copious amounts of purulence in the right maxillary sinus obstructive turbinate removed Description of Procedure patient identified consent verified. Patient brought operating room. Time-out performed. General anesthesia induced endotracheal tube secured airway. Patient prepped reposition 2nd time-out performed. Afrin-soaked pledgets placed in bilateral nasal passages allowed to sit for 5 minutes. Afrin-soaked pledgets removed. 0 degree endoscope utilized. Right side examined. Septal deviation. Turbinate was obstructive well. Turbinate injected with 0.5 cc 1% lidocaine at the stalk middle turbinate removed straight through cut. The stalk was cauterized with Bovie suction electrocautery setting 10-15. Right-sided maxillary antrostomy performed with double ball probe backbiter flagged down biter straight through cut micro debrider copious amounts of purulence were encountered and irrigated until none remained. Bleeding essentially in 25-50 cc max. I performed all dictated portions of procedure. Patient tolerated procedure well no complications care the patient given Anesthesiology. Patient taken to PACU. Estimated Blood Loss 25 Drains No Packing No Pathology None sent Complications No immediate complications Condition Stable Disposition PACU [facility] Billing Surgery - Charge Forward: Surgery Billing
== END 2022-08-01 15:55 | disposition home or self-care (01) ==
PROVIDERS: PCP Internal Medicine; Visit Provider Otolaryngology
PROC: (CPT 31256; principal; 2022-08-01 13:00)
DX: J32.0 Chronic maxillary sinusitis (principal); J34.3 Hypertrophy of nasal turbinates; J30.89 Other allergic rhinitis; B49 Unspecified mycosis; I13.10 Hypertensive heart and chronic kidney disease without heart failure, with stage 1 through stage 4 chronic kidney disease, or unspecified chronic kidney disease; N18.1 Chronic kidney disease, stage 1; J44.9 Chronic obstructive pulmonary disease, unspecified; E78.2 Mixed hyperlipidemia; Z79.51 Long term (current) use of inhaled steroids; Z79.82 Long term (current) use of aspirin; Z87.891 Personal history of nicotine dependence
CPT/HCPCS: 31256; 30999; 82948; A9270; J0330; J0690; J1100; J2250; J2405; J2704; J3010; J7120

== ENCOUNTER → 2022-09-11 13:07 | Outpatient (CLI) | payer MEDICARE, OTHER, SELFPAY ==
--- NOTE | ~2022-09-11 | US_ITS ---
EXAMINATION: US thyroid DATE: 09/11/2022 13:51 INDICATION: Nontoxic single thyroid nodule. TECHNIQUE: Multiple ultrasound images of the thyroid were obtained. COMPARISON: Ultrasound 11/16/2014 FINDINGS: The right thyroid lobe measures 4.6 x 2.5 x 2.0 cm. The left thyroid lobe measures 4.4 x 2.3 x 1.7 c m. In the right thyroid lobe, there is a 1.7 cm mixed cystic and solid, isoechoic, wider than tall n odule with smooth margin without echogenic foci (TI-RADS TR2). In the left thyroid lobe, there is a 1 .5 cm predominantly solid, hypoechoic, wider than tall nodule with ill-defined margin without echogen ic foci (TR4) with interval increase in size. In the left thyroid lobe, there is a 1.1 cm solid, hypo echoic, wider than tall nodule with smooth margin without echogenic foci (TR4) with interval increase in size. There are multiple subcentimeter nodules in the thyroid. IMPRESSION: 1. Multinodular goiter. Ultrasound-guided aspiration of the 1.5 cm left thyroid nodule is recommended . Reviewed, dictated and finalized at location A. IMPRESSION: 1. Multinodular goiter. Ultrasound-guided aspiration of the 1.5 cm left thyroid nodule is recommended.
--- NOTE | ~2022-09-11 | US_ITS ---
EXAMINATION: US carotid duplex BI DATE: 09/11/2022 13:49 INDICATION: Occlusion and stenosis of the bilateral carotid arteries. TECHNIQUE: Grayscale, color Doppler, and pulsed Doppler images of the cervical carotid arteries were obtained. The degree of vessel stenosis is placed in one of the following categories: normal, <50%, 5 0-69%, >=70% but less than near-occlusion, near-occlusion, or total occlusion. Note that percent sten osis relative to normal distal artery lumen diameter is indirectly measured from velocity measurement s as described by Yan, et al. Radiology 2003; 229:340-346. COMPARISON: None. FINDINGS: RIGHT: The right common carotid artery (CCA) peak systolic velocity (PSV) is 70 cm/s. The right internal car otid artery (ICA) PSV is 83 cm/s. The right ICA end-diastolic velocity (EDV) is 18 cm/s. The right IC A/CCA PSV ratio is 1.2. Grayscale and color Doppler images yield an estimate of <50% diameter reducti on from plaque in the ICA. The external carotid artery (ECA) PSV is 38 cm/s. There is antegrade flow in the right vertebral artery. LEFT: The left CCA PSV is 83 cm/s. The left ICA PSV is 43 cm/s. The left ICA EDV is 11 cm/s. The left ICA/C CA PSV ratio is 0.5. Grayscale and color Doppler images yield an estimate of <50% diameter reduction from plaque in the ICA. The ECA PSV is 52 cm/s. There is antegrade flow in the left vertebral artery. IMPRESSION: 1. <50% stenosis in the right internal carotid artery. 2. <50% stenosis in the left internal carotid artery. Reviewed, dictated and finalized at location B.
== END ==
PROVIDERS: PCP Internal Medicine; Visit Provider Internal Medicine
DX: I65.23 Occlusion and stenosis of bilateral carotid arteries (principal); R01.1 Cardiac murmur, unspecified; E04.1 Nontoxic single thyroid nodule; E04.2 Nontoxic multinodular goiter
CPT/HCPCS: 76536; 93880

== ENCOUNTER 2022-10-04 10:27 | Outpatient (CLI) | payer MEDICARE, OTHER, SELFPAY ==
--- NOTE | ~2022-10-04 | XR_ITS ---
EXAM: XR lumbar spine min 4V DATE: 10/04/2022 10:47 HISTORY: no injury lbp with bilat leg pain for 2 weeks . COMPARISON: None available. FINDINGS: Decreased mineralization. Mild lumbar scoliosis. 5 nonrib-bearing lumbar-type vertebral bod ies. Pedicles intact. 3 mm anterolisthesis at L4-5 that remains stable in flexion and extension. Alig nment otherwise normal. Multilevel disc space narrowing and marginal osteophytosis. Multilevel severe mid and lower lumbar facet hypertrophy and sclerosis. IMPRESSION: Osteopenia. Stable grade 1 anterolisthesis at L4-5. Multilevel mild lumbar degenerative d isc disease Multilevel severe lumbar facet arthropathy. Reviewed, dictated and finalized at location K. IMPRESSION: Osteopenia. Stable grade 1 anterolisthesis at L4-5. Multilevel mild lumbar degenerative disc disease Multilevel severe lumbar facet arthropathy.
== END 2022-10-04 10:28 ==
PROVIDERS: PCP Internal Medicine; Visit Provider Internal Medicine
DX: M85.88 Other specified disorders of bone density and structure, other site (principal); M51.36 Other intervertebral disc degeneration, lumbar region
CPT/HCPCS: 72110

== ENCOUNTER → 2022-11-15 09:22 | Outpatient (CLI) | payer MEDICARE, OTHER, SELFPAY ==
--- NOTE | ~2022-11-15 | XR_ITS ---
EXAMINATION: XR sternum min 2V DATE: 11/15/2022 09:36 INDICATION: Midsternal lump. TECHNIQUE: 2 views of the sternum on 3 radiographs were obtained. COMPARISON: PET/CT 01/03/2022 FINDINGS: Bone alignment is normal. No fracture. By CT, the right sternocostal cartilage protrudes mo re anteriorly than the left as a normal variant. IMPRESSION: 1. Normal sternum. Reviewed, dictated and finalized at location A. IMPRESSION: 1. Normal sternum.
== END ==
PROVIDERS: PCP Internal Medicine; Visit Provider Internal Medicine
DX: R22.2 Localized swelling, mass and lump, trunk (principal)
CPT/HCPCS: 71120

== ENCOUNTER → 2023-01-04 10:25 | Outpatient (CLI) | payer MEDICARE, OTHER, SELFPAY ==
--- NOTE | ~2023-01-04 | XR_ITS ---
XR chest 2V 01/04/2023 10:44 Indication: Treated left upper lobe lung cancer Procedure: 2 view chest Comparison: Comparison to multiple prior studies sequentially, with oldest reviewed study dated 01/2021. Findings: Cardiomegaly. Stable masslike density left suprahilar location, likely area of treated todd gnancy. Right lung clear. No significant interval change. No acute focal pneumonia, edema, pleural ef fusion or pneumothorax. Impression: 1: No acute cardiopulmonary disease. 2: Stable masslike density left suprahilar location, likely treated malignancy. Reviewed, dictated and finalized at location L. Impression: 1: No acute cardiopulmonary disease. 2: Stable masslike density left suprahilar location, likely treated malignancy.
== END ==
PROVIDERS: PCP Internal Medicine; Visit Provider Internal Medicine Hematology & Oncology
DX: C34.12 Malignant neoplasm of upper lobe, left bronchus or lung (principal)
CPT/HCPCS: 71046

== ENCOUNTER 2023-01-09 08:56 | Outpatient (CLI) | payer MEDICARE, OTHER, SELFPAY ==
[2023-01-09 09:14] LABS: Basophils Percent Auto 0.7 % (0.2-1.2); Eosinophils Absolute Auto 0.2 K/mm3 (0-0.3); Eosinophils Percent Auto 4.4 % (0-4.4); Hematocrit 44.4 % (37.0-47.0); Hemoglobin 14.5 g/dL (12.0-15.0); Immature Granulocyte Absolute 0.01 K/mm3 (0.00-0.031); Immature Granulocyte Percent A 0.2 % (0-0.5); Lymphocytes Percent Auto 32.9 % (18.3-44.2); Mean Corpuscular HGB Conc 32.7 g/dl (32-36); Mean Corpuscular Hemoglobin 29.8 pg (26-34); Mean Corpuscular Volume 91.4 fl (80-100); Mean Platelet Volume 9.5 fl (7.4-10.4); Monocytes Absolute Auto 0.7 K/mm3 (0.1-0.6); Monocytes Percent Auto 12.4 % (2.6-8.5); Neutrophils Absolute Auto 2.7 K/mm3 (1.3-6.7); Neutrophils Percent Auto 49.4 % (45.5-73.1); Platelet Count Result 199 k/mm3 (150-375); Red Blood Count 4.86 M/mm3 (4.2-5.4); Red Cell Distribution Width 14.6 % (11.5-14.5); White Blood Count 5.5 K/mm3 (4.5-10.0)
[2023-01-09 09:20] LABS: Blood Urea Nitrogen 28 mg/dL (8-26); Carbon Dioxide 22 mmol/L (22-30); Chloride 102 mmol/L (98-109); Estimated Glomerular Filt Rate 40; Glucose 86 mg/dL (70-105); Ionized Calcium (POC) 1.24 mmol/L (1.11-1.31); Potassium 4.5 mmol/L (3.5-4.9); Sodium 135 mmol/L (138-146)
[2023-01-09 10:10] LABS: Alanine Aminotransferase 28 U/L (6-35); Albumin Level 4.2 g/dL (3.5-5.1); Alkaline Phosphatase 103 U/L (38-126); Anion Gap 12 mmol/L (8-16); Aspartate Amino Transferase 32 U/L (14-36); Bilirubin,Total 0.9 mg/dL (0.2-1.3); Blood Urea Nitrogen 28 mg/dL (7-17); Calcium 9.8 mg/dL (8.4-10.2); Carbon Dioxide 23 mmol/L (22-30); Chloride 100 mmol/L (98-107); Estimated Glomerular Filt Rate 40; Glucose 84 mg/dL (65-110); Potassium 4.5 mmol/L (3.4-5.0); Sodium 135 mmol/L (137-145)
== END 2023-01-09 08:57 | disposition home or self-care (01) ==
LOC: ANHLAB 09:01
PROVIDERS: PCP Internal Medicine; Visit Provider Internal Medicine Hematology & Oncology
DX: C34.12 Malignant neoplasm of upper lobe, left bronchus or lung (principal)
CPT/HCPCS: 36415; 80047; 80053; 85025

== ENCOUNTER 2023-02-19 15:36 | Emergency (ER) | payer MEDICARE, OTHER, SELFPAY ==
--- NOTE | ~2023-02-19 | XR_ITS ---
XR knee RT 3V 02/19/2023 16:20 Indication: Right knee pain Procedure: 3 views right knee Comparison: No prior studies for comparison. Findings: There is mild osteoarthritis of the right knee. No fracture or traumatic malalignment. No s ignificant joint effusion. Impression: 1: No acute fracture. Reviewed, dictated and finalized at location B. Impression: 1: No acute fracture.
--- NOTE | ~2023-02-19 | CT_ITS ---
EXAMINATION: CT facial & cervical spine wo DATE: 02/19/2023 16:11 INDICATION: fall, pain TECHNIQUE: Computed tomography (CT) of the maxillofacial region and cervical spine was performed with out intravenous contrast. Automated exposure control and iterative reconstruction technique were empl oyed. The dose-length product was 464.23 mGy-cm. COMPARISON: [facility] 11/29/2021 FINDINGS: CERVICAL: Vertebral Body Alignment: Stable grade 1 anterolisthesis at C6-7. Craniocervical and atlantoaxial alignment: Moderate degenerative change. Alignment intact. Osseous structures/fracture: No evidence of a lytic or blastic process in the visualized spine. No e vidence of acute fracture. Cervical soft tissues: The paraspinal soft tissues planes are maintained. Degenerative changes: Multilevel moderate degenerative disc disease and severe facet arthropathy. Mul tilevel severe bilateral neural foraminal narrowing. Moderate-severe central canal narrowing at C5-6. FACE: Soft Tissues: Frontal soft tissue laceration. Facial bones: No acute fracture. No lytic or blastic process. Eyes: The globes are intact. The soft tissue planes of the orbits are maintained. Bilateral lens re placements. Paranasal Sinuses: The visualized aerated spaces are clear. Foreign Bodies: No radiopaque foreign bodies. Other Findings: Greater than 6 mm groundglass opacity in the right upper lobe. IMPRESSION: No acute fracture or traumatic malalignment in the cervical spine. No acute facial bone fracture. Right upper lobe groundglass opacity, recommend follow-up low-dose CT of the chest in 6-12 months to confirm persistence Reviewed, dictated and finalized at location K. IMPRESSION: No acute fracture or traumatic malalignment in the cervical spine. No acute fac ial bone fracture. Right upper lobe groundglass opacity, recommend follow-up low-dose CT of the ch est in 6-12 months to confirm persistence
--- NOTE | ~2023-02-19 | CT_ITS ---
EXAMINATION: CT brain wo con DATE: 02/19/2023 16:08 INDICATION: trauma . TECHNIQUE: Computed tomography (CT) of the head was performed without intravenous contrast. The mA wa s adjusted according to patient size. Iterative reconstruction technique was employed. The dose-lengt h product was 605.33 mGy-cm. COMPARISON: None. FINDINGS: No acute intracranial hemorrhage or extra-axial fluid collection. No hydrocephalus, mass, or herniation. No acute ischemic infarct. Unremarkable dural venous sinus attenuation. No acute osseous abnormality. Frontal soft tissue laceration. The aerated spaces are clear. IMPRESSION: No acute intracranial process. Reviewed, dictated and finalized at location K.
--- NOTE | ~2023-02-19 | XR_ITS ---
EXAMINATION: XR forearm RT 2V, XR wrist RT min 3V DATE: 02/19/2023 16:20 INDICATION: Right wrist and forearm pain post fall TECHNIQUE: Line 1. AP an lateral views of the right forearm were obtained. 2. PA, lateral, oblique and navicular views of the right wrist were obtained. COMPARISON: none FINDINGS: Bone alignment is normal. No fracture. Polyarticular osteoarthritis, severe at the first carpometacar pal joint, moderate severity at the triscaphe and first - third metacarpophalangeal joints and mild a t the elbow, wrist, midcarpal and first interphalangeal and fourth and fifth metacarpophalangeal join ts. No evident elbow joint effusion. Mild soft tissue tissue swelling along the dorsal aspect of the proximal to mid forearm. IMPRESSION: 1. 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 No a cute osseous abnormality. Reviewed, dictated and finalized at location A. IMPRESSION: 1. 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 No acute osseous abnormality.
[2023-02-19 15:35] VITALS: BP 153/77; PULSE 72; RESP 18; TEMP 36.6; O2SAT 100
--- NOTE | 2023-02-19 15:45 | ED.FALL ---
HPI - Fall General Chief Complaint: Fall Stated Complaint: fall Time Seen by Provider: 02/19/23 15:39 History of Present Illness HPI Narrative: Patient is a 77-year-old female with history of hypertension, hyperlipidemia, on baby aspirin here after a fall. She states she was trying to take her jacket off and lost her balance and fell face forward hitting her face on concrete. She denies any loss of consciousness. She notes a wound to her forehead as well as to her right forearm. She also believes that she had her right knee on the ground when she fell. No blood thinner use. She denies any prodromal chest pain or shortness of breath. She is unsure of when her last tetanus shot was. Related Data Home Medications Medication Instructions Recorded Confirmed aspirin 81 mg tablet,delayed 81 mg PO DAILY 04/09/19 01/09/23 release (Adult Low Dose Aspirin) mecobalamin (vitamin B12) 1,000 1,000 mcg sublingual DAILY 04/09/19 01/09/23 mcg disintegrating tablet,sublingual folic acid 400 mcg tablet 1.4 mg PO DAILY 07/18/19 01/09/23 cholecalciferol (vitamin D3) 50 50 mcg PO DAILY 05/19/20 01/09/23 mcg (2,000 unit) capsule magnesium 250 mg tablet 250 mg PO DAILY 05/19/20 01/09/23 zinc 50 mg tablet 50 mg PO DAILY 05/19/20 01/09/23 colchicine (gout) 0.6 mg tablet 0.6 mg PO DAILY 11/02/22 01/09/23 Allergies Allergy/AdvReac Type Severity Reaction Status Date / Time brimonidine [From Alphagan P] AdvReac EXTREME Verified 02/19/23 15:42 RED EYES Review of Systems Review of Systems: All systems reviewed & are unremarkable except as noted in HPI and below PMFSH Past Medical History Medical History (Updated 02/19/23 @ 18:15 by Floridalma Riley MD) Abnormal mammogram Acute ear pain Aphasia of unknown origin Benign essential hypertension Bilateral hip pain Bilateral leg cramps BMI 25.0-25.9,adult BMI 26.0-26.9,adult BMI 27.0-27.9,adult BMI 28.0-28.9,adult Cardiac murmur Cataracts, bilateral Chronic hoarseness CKD (chronic kidney disease) CKD (chronic kidney disease), stage I COPD (chronic obstructive pulmonary disease) COVID-19 vaccine series completed Diastolic dysfunction DJD (degenerative joint disease), multiple sites Dysfunction of left eustachian tube Dyspepsia Elevated d-dimer Elevated homocysteine Encounter for Medicare annual wellness exam Encounter for routine adult health examination with abnormal findings Encounter for routine adult health examination without abnormal findings Follow up Fungal infection Gastric polyp Glaucoma Hearing loss Hearing loss Hx of cancer of lung Hx of hyperkalemia IGT (impaired glucose tolerance) Impacted cerumen of both ears Left shoulder pain 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 Pericardial effusion PND (post-nasal drip) Rash Right shoulder tendonitis Seasonal allergies Seasonal allergies Sebaceous cyst Sensation of fullness in both ears SOB (shortness of breath) Sternal mass Thyroid nodule UTI (urinary tract infection) UTI symptoms Vitamin D deficiency Vocal cord anomaly Watery eyes Surgical History Surgical History S/P cataract extraction Family History Family History Father Hypertension Family history of elevated blood lipids Cerebrovascular accident Family history of heart disease in male family member before age 55 Family history of hypercholesterolemia Mother Family history of malignant neoplasm of uterus Family history of gastrointestinal disorder Family history of malignant neoplasm Social History Social History Social History: Caffeine-coffee Smoking packs per day: 1 Smoking cigarettes per day: 20.0 Years smoked: 10 Smoking pack-years: 10.00 Smoking status: Former smoker Tobacco type: cigarettes Second hand tobacco smoke exposure: No Smoking e
[2023-02-19] MEDS: TETANUS,DIPHTHERIA,AC PERTUSSIS ADULT (0.5 ML) BOOSTRIX IM (16:23)
[2023-02-19] MEDS: LIDO 1%/EPINEPHRINE 1:100,000 50 ML VIAL 10 ML INFILTRATE (17:34)
[2023-02-19 18:28] VITALS: BP 140/74; PULSE 77; RESP 18; TEMP 36.7; O2SAT 98
== END 2023-02-19 18:31 | disposition home or self-care (01) ==
PROVIDERS: Emergency Provider Student in an Organized Health Care Education/Training Program; PCP Internal Medicine
DX: S01.81XA Laceration without foreign body of other part of head, initial encounter (principal); S51.811A Laceration without foreign body of right forearm, initial encounter; Z23 Encounter for immunization; I12.9 Hypertensive chronic kidney disease with stage 1 through stage 4 chronic kidney disease, or unspecified chronic kidney disease; E78.2 Mixed hyperlipidemia; N18.1 Chronic kidney disease, stage 1; H40.9 Unspecified glaucoma; E55.9 Vitamin D deficiency, unspecified; M19.031 Primary osteoarthritis, right wrist; M19.021 Primary osteoarthritis, right elbow; M19.041 Primary osteoarthritis, right hand; M17.11 Unilateral primary osteoarthritis, right knee; Z85.118 Personal history of other malignant neoplasm of bronchus and lung; Z87.440 Personal history of urinary (tract) infections; Z87.891 Personal history of nicotine dependence; Z98.49 Cataract extraction status, unspecified eye; Z79.82 Long term (current) use of aspirin; R91.8 Other nonspecific abnormal finding of lung field; W18.39XA Other fall on same level, initial encounter
CPT/HCPCS: 12013; 70450; 70486; 72125; 73090; 73110; 73562; 90471; 90715; 99284

== ENCOUNTER 2023-08-20 08:17 | Outpatient (CLI) | payer MEDICARE, OTHER, SELFPAY ==
--- NOTE | ~2023-08-20 | US_ITS ---
US breast LT limited DATE: 08/20/2023 10:03 INDICATION: Patient presented for biopsy of the left breast 3:30 o'clock lesion 11 cm from nipple FINDINGS: The patient was scanned by the technologist and subsequently in the presence of the radiolo gist. The imaged findings were shown to the patient. The lesion is parallel, measuring 0.4 x 1.8 x 0.56 mm dimension. The margins are circumscribed. There is through transmission. There is no suspicious vascu larity. Upon routine required discussion of the biopsy procedure including alternatives and complications, th e patient opted to have 6 month follow-up rather than biopsy today, given the fact that 2 radiologist s including myself indicated to the patient that this lesion is most likely benign based upon the josiane ging characteristics. IMPRESSION: BI-RADS Category 3: Probably benign finding Recommendation: 6 month diagnostic left mammogram and left breast ultrasound follow-up. Should this l esion show increased size or suspicious change in imaging features in 6 months, biopsy could be perfo rmed at that time. Reviewed, dictated and finalized at Location A. Reviewed, dictated and finalized at location A. IMPRESSION: BI-RADS Category 3: Probably benign finding Recommendation: 6 month diagnostic left mammogram and left breast ultrasound fo llow-up. Should this lesion show increased size or suspicious change in imaging features in 6 months, biopsy could be performed at that time.
== END 2023-08-20 08:18 | disposition home or self-care (01) ==
PROVIDERS: Visit Provider Surgery
DX: R92.8 Other abnormal and inconclusive findings on diagnostic imaging of breast (principal); N63.20 Unspecified lump in the left breast, unspecified quadrant
CPT/HCPCS: 76642

== ENCOUNTER 2023-10-25 12:49 | Outpatient (CLI) | payer MEDICARE, OTHER, SELFPAY ==
--- NOTE | ~2023-10-25 | US_ITS ---
EXAMINATION: US thyroid DATE: 10/25/2023 13:34 INDICATION: Nontoxic single thyroid nodule TECHNIQUE: Multiple ultrasound images of the thyroid were obtained. COMPARISON: 09/11/2022 FINDINGS: The right thyroid lobe measures 4.5 x 2.1 x 2.2 cm. The left thyroid lobe measures 5.3 x 2.3 x 1.7 c m. 1.2 cm wider than tall mixed solid and cystic nodule with smooth margins, isoechoic solid compone nt with punctate echogenic foci (TI-RADS 4, moderately suspicious , FNA if >=1.5 cm, annual followup is >=1 cm). 1.4 cm wider than tall mixed solid and cystic nodule left thyroid lobe with lobular jose f ns hypoechoic solid component and without echogenic foci, also TI RADS 4. There are a few additional scattered bilateral subcentimeter TI RADS 4 nodules. IMPRESSION: 1. Multinodular goiter, none currently meeting criteria for biopsy, but a couple meeting criteria for annual ultrasound follow-up which would be recommended. Reviewed, dictated and finalized at location A. IMPRESSION: 1. Multinodular goiter, none currently meeting criteria for biopsy, but a coupl e meeting criteria for annual ultrasound follow-up which would be recommended.
== END 2023-10-25 12:50 ==
LOC: GOSHIMG 12:50
PROVIDERS: PCP Internal Medicine; Visit Provider Internal Medicine
DX: E04.2 Nontoxic multinodular goiter (principal)
CPT/HCPCS: 76536

== ENCOUNTER 2024-01-02 11:00 | Outpatient (RCR) | payer MEDICARE, BC, SELFPAY ==
--- NOTE | 2023-11-22 09:51 | PTOPEVAL1 ---
Assessment and note entered by Jayy La Evaluation Information Assessment Status Evaluation ICD-10 Condition Codes (PT) Pain in right hip M25.551,Pain in left hip M25.552 Onset 11/21/22 Subjective Information Pt. reports she developed bilateral hip pain about 1 year ago. She states that in the past year she has received 2 injections described in the area of the greater trochanter, with only brief relief. She describes pain around the area of the greater trochanter on both right and left and radiates toward the low back. She denies any groin pain. she states that pain is not constant and most notable at night. She sleeps on her side at night and has to change position frequently due to increasing pain. She states that walking long distance is difficult due to notable fatigue across the low back. she notices some weakness that will develop in the right leg with standing. She reports that her goal is to reduce her pain in the hips Reported Pain Level Pain Score 0: Self Report Assessment PT Clinical Summary Pt. is a 78 year old female who enters the clinic with bilateral hip pain. She presents with impairments in core strength, postural awareness, l.e. and lumbar ROM, functional decline and pain on this date. Continued skilled PT is indicated in order to improve these areas to allow the pt. to be able to complete all IADL's with improved comfort and efficiency. Plan of Care Interventions Electrical Stimulation,Gait Training,Hot Pack/Cold Pack,Manual Therapy,Neuro Re-education,Patient/ Caregiver Educati,Therapeutic Activities, Therapeutic Exercise PT Services Indicated Yes Treatment Frequency and 2x/week x 10 visits Duration These treatments will address the objective and functional deficits as defined above. The patient will be advanced safely and appropriately in order for the patient to progress towards his/her prior level of function. Additional exercises will be introduced and as well as a comprehensive home exercise program upon discharge, if needed, ?to ensure carryover of functional gains achieved in the clinic. This treatment plan has been reviewed and agreement upon by the patient.
--- NOTE | 2023-11-22 09:53 | OPREHPOC ---
Outpatient Therapy Plan of Care This is a Multidisciplinary Plan of Care that may contain components documented by all disciplines (PT, OT, and ST.) PT Problem 1 PT Problem #1 Knowledge Deficit PT Goal 1 Goal Pt. will be independent with a HEP addressing core strength and l.e. mobility. Target Visit 2 PT Problem 2 PT Problem #2 Impaired Strength PT Goal 1 Goal Pt. will present with 4/5 or greater hip abduction strength or greater to improve lateral stability with ambulation. Target Visit 10 PT Problem 3 PT Problem #3 Impaired Functional Mobil PT Goal 1 Goal Pt. will present with less than 20% limitation on the LEFS Pt. will reports being able to stand/walk for duration of 45 minutes without rest due to pain increase Target Visit 10 PT Problem 4 PT Problem #4 Impaired Gait PT Goal 1 Goal Pt. will ambulate over level surface without noted trendelenburg on the left. Target Visit 10
--- NOTE | 2023-12-04 09:55 | PCPTNOTE ---
Patient called & cancelled scheduled appointment this date due to having a scheduling conflict.
--- NOTE | 2023-12-19 11:08 | PCPTNOTE ---
Patient called & cancelled scheduled appointment this date due to having a scheduling conflict.
--- NOTE | 2024-01-02 09:55 | PCPTNOTE ---
Patient was canceled 12/26/23 due to therapist out with illness.
--- NOTE | 2024-01-02 09:58 | PCPTNOTE ---
Patient was canceled 12/28/23 due to therapist out with illness.
--- NOTE | 2024-01-02 11:53 | PTOPDC ---
Assessment and note entered by Dev Baugh, PT, DPT Evaluation Information Assessment Status Discharge Diagnosis pat hip pain ICD-10 Condition Codes (PT) Pain in right hip M25.551,Pain in left hip M25.552 Onset 11/21/22 Subjective Information Pt states her hip pain has decreased significantly , she states she does her exercises daily and they seem to be helping. She states her pain has been improving with therapy, she does her exercises every morning. She states she is a little stiff in the morning but sleeping has improved a lot. Reported Pain Level Pain Score 0: Self Report Assessment PT Clinical Summary Pt completed 7 visits of skilled therapy. Has significantly improved pain reports and functional mobility, still demonstrates decreased hip strength globally. Has progressed well towards therapy goals. Will be d/c'ed at this time to continue her HEP.
== END 2024-01-02 13:13 | disposition home or self-care (01) ==
LOC: ANHGOSHPT 11:00
PROVIDERS: PCP Internal Medicine; Visit Provider Internal Medicine
DX: M25.551 Pain in right hip (principal); M25.552 Pain in left hip
CPT/HCPCS: 97014; 97110; 97112; 97140; 97161; 97530; G0283

== ENCOUNTER 2024-01-09 11:50 | Outpatient (CLI) | payer MEDICARE, BC, SELFPAY ==
--- NOTE | ~2024-01-09 | XR_ITS ---
Clinical Indication: Lung cancer PA and lateral views of the chest: Comparison: 01/04/2023 Findings: Stable hazy opacity left suprahilar region. Right lung clear. Cardiomediastinal silhouette is within normal limits. Bones and soft tissues are unremarkable. Impression: Stable left bilateral hazy opacity, probably representing chronic post therapy change. Reviewed, dictated and finalized at location . Impression: Stable left bilateral hazy opacity, probably representing chronic post therapy change.
== END 2024-01-09 11:51 | disposition home or self-care (01) ==
LOC: ANHIMG 11:58
PROVIDERS: PCP Internal Medicine; Visit Provider Internal Medicine Hematology & Oncology
DX: R91.8 Other nonspecific abnormal finding of lung field (principal); C34.12 Malignant neoplasm of upper lobe, left bronchus or lung
CPT/HCPCS: 71046

== ENCOUNTER 2024-01-10 11:20 | Outpatient (CLI) | payer MEDICARE, BC, SELFPAY ==
[2024-01-10 11:37] LABS: Basophils Absolute Auto 0.1 K/mm3 (0.0-0.1); Basophils Percent Auto 0.7 % (0.2-1.2); Eosinophils Absolute Auto 0.2 K/mm3 (0-0.3); Hematocrit 45.3 % (37.0-47.0); Hemoglobin 14.6 g/dL (12.0-15.0); Immature Granulocyte Absolute 0.03 K/mm3 (0.00-0.031); Immature Granulocyte Percent A 0.4 % (0-0.5); Lymphocytes Absolute Auto 1.95 K/mm3 (0.9-3.2); Lymphocytes Percent Auto 25.5 % (18.3-44.2); Mean Corpuscular HGB Conc 32.2 g/dl (32-36); Mean Corpuscular Hemoglobin 30.4 pg (26-34); Mean Corpuscular Volume 94.4 fl (80-100); Mean Platelet Volume 9.7 fl (7.4-10.4); Monocytes Absolute Auto 0.7 K/mm3 (0.1-0.6); Neutrophils Absolute Auto 4.8 K/mm3 (1.3-6.7); Neutrophils Percent Auto 62.4 % (45.5-73.1); Platelet Count Result 189 k/mm3 (150-375); Red Cell Distribution Width 13.5 % (11.5-14.5); White Blood Count 7.7 K/mm3 (4.5-10.0)
[2024-01-10 11:41] LABS: Blood Urea Nitrogen 23 mg/dL (8-26); Carbon Dioxide 24 mmol/L (22-30); Chloride 100 mmol/L (98-109); Estimated Glomerular Filt Rate 34; Glucose 90 mg/dL (70-105); Ionized Calcium (POC) 1.24 mmol/L (1.11-1.31); Potassium 5.5 mmol/L (3.5-4.9); Sodium 131 mmol/L (138-146)
[2024-01-10 13:31] LABS: Alanine Aminotransferase 49 U/L (6-35); Albumin Level 4.5 g/dL (3.5-5.1); Alkaline Phosphatase 99 U/L (38-126); Anion Gap 13 mmol/L (4-12); Aspartate Amino Transferase 49 U/L (14-36); Bilirubin,Total 0.9 mg/dL (0.2-1.3); Blood Urea Nitrogen 22 mg/dL (7-17); Calcium 9.9 mg/dL (8.4-10.2); Carbon Dioxide 22 mmol/L (22-30); Chloride 96 mmol/L (98-107); Estimated Glomerular Filt Rate 37; Glucose 90 mg/dL (65-110); Potassium 5.5 mmol/L (3.4-5.0); Sodium 131 mmol/L (137-145)
== END 2024-01-10 11:21 | disposition home or self-care (01) ==
LOC: ANHLAB 11:23
PROVIDERS: PCP Internal Medicine; Visit Provider Internal Medicine Hematology & Oncology
DX: C34.12 Malignant neoplasm of upper lobe, left bronchus or lung (principal)
CPT/HCPCS: 36415; 80047; 80053; 85025

== ENCOUNTER 2024-03-13 12:48 | Outpatient (CLI) | payer MEDICARE, BC, SELFPAY ==
--- NOTE | ~2024-03-13 | MMUS_ITS ---
History: 78-year-old woman with a personal history of left-sided lung cancer presents following resection and radiation for diagnostic evaluation of findings detected within the the outer left breast . TECHNIQUE: CC and MLO 3-D tomosynthesis images were obtained and synthetic 2-D images were generated. TECHNIQUE: Sonographic evaluation of the left breast was performed assessing grayscale appearance and color Doppler flow. COMPARISON: Comparison to multiple prior examinations performed most recently on 03/13/2024 (today's study) and d ating back to 01/22/2012. FINDINGS: Spot compression demonstrates a lobulated well-circumscribed focus approximately 10 to 11 cm from the nipple at the 3:30 position on the MLO view, not detected on the CC view (likely out of the field of view). This focus mammographically looks similar to a lymph node for which focused ultrasound will be perfor med. Focused ultrasound of the area of mammographic concern demonstrates a well-circumscribed focus of mix ed echogenicity at the 3:30 position of the left breast approximately 11 cm from the nipple measuring 14.9 x 4.5 x 14.2 mm. (decreased in size from previous examination dated 08/20/2023 when it measured 1 8.5 x 5.6 x 13.8 mm. Sonographic evaluation of the remainder of the left breast demonstrates benign fibroglandular element s without a cystic or solid lesion. IMPRESSION: Asymmetry within the posterior lateral quadrant of the left breast which likely represents a minimall y enlarged somewhat atypical lymph node (as detailed above) for which 2 years of imaging stability is suggested. When comparing to previous examinations, this focus was present on the 2012 examination but demonstra michele a different morphology for which 2 years of stability of this finding with the current morphology is suggested. BI-RADS Category 3: Probably benign findings. Yearly screening should be performed in 6 months (no order to resume yearly screening of the right br east). Once that is performed, focused ultrasound of the posterior third of the left breast is recomm ended for confirmation of these findings. Reviewed, dictated and finalized at location A. IMPRESSION: Asymmetry within the posterior lateral quadrant of the left breast which likely represents a minimally enlarged somewhat atypical lymph node (as detailed abov e) for which 2 years of imaging stability is suggested. When comparing to previous examinations, this focus was present on the 2011 exa mination but demonstrated a different morphology for which 2 years of stability of this finding with the current morphology is suggested. BI-RADS Category 3: Probably benign findings. Yearly screening should be performed in 6 months (no order to resume yearly scr eening of the right breast). Once that is performed, focused ultrasound of the posterior third of the left breast is recommended for confirmation of these fin dings.
== END 2024-03-13 12:49 | disposition home or self-care (01) ==
LOC: ANHIMG 12:49
PROVIDERS: PCP Internal Medicine; Visit Provider Physician Assistant Surgical
DX: R92.8 Other abnormal and inconclusive findings on diagnostic imaging of breast (principal)
CPT/HCPCS: 76642; 77061; 77065; G0279

== ENCOUNTER 2024-08-20 12:20 | Outpatient (CLI) | payer MEDICARE, OTHER, SELFPAY ==
--- NOTE | ~2024-08-20 | US_ITS ---
EXAMINATION: US renal BI DATE: 08/20/2024 12:38 INDICATION: Stage I chronic kidney disease TECHNIQUE: Multiple ultrasound grayscale images of the kidneys were obtained. COMPARISON: 12/30/2020 FINDINGS: The right kidney measures 8.9 x 4.2 x 5.1 cm. The left kidney measures 9.4 x 4.1 x 5.5 cm. The kidney s demonstrate normal echogenicity. 5.3 cm anechoic right renal cyst, increased from 2.9 cm. There is no hydronephrosis in either kidney. No stones identified. The bladder is normal with bilateral urete ral jets visualized on color Doppler. IMPRESSION: 1.. No interval increase in size of a now 5.3 cm right renal cyst. Otherwise normal kidneys without h ydronephrosis. Reviewed, dictated and finalized at location B. IMPRESSION: 1.. No interval increase in size of a now 5.3 cm right renal cyst. Otherwise no rmal kidneys without hydronephrosis.
== END 2024-08-20 12:21 | disposition home or self-care (01) ==
LOC: GOSHIMG 12:21
PROVIDERS: PCP Internal Medicine; Visit Provider Internal Medicine
DX: I12.9 Hypertensive chronic kidney disease with stage 1 through stage 4 chronic kidney disease, or unspecified chronic kidney disease (principal); N18.1 Chronic kidney disease, stage 1
CPT/HCPCS: 76775

== ENCOUNTER 2024-09-12 10:20 | Outpatient (CLI) | payer MEDICARE, OTHER, SELFPAY ==
--- NOTE | ~2024-09-12 | MMUS_ITS ---
EXAMINATION: MM diagnostic joshua BI w john, US breast BI limited HISTORY: Follow-up breast mass TECHNIQUE: Additional 3-D tomosynthesis images of the breasts were performed and synthetic 2-D images were generated. CAD analysis was submitted and interpreted. High resolution limited bilateral breast ultrasound was performed. COMPARISON: Comparison to multiple prior studies sequentially, with oldest reviewed study dated 01/2020. BREAST PARENCHYMAL COMPOSITION: Not dense: There are scattered areas of fibroglandular density. FINDINGS: MAMMOGRAPHIC FINDINGS: The breasts are stable. No new masses, calcifications or architectural distortion are identified in e ither breast to suggest malignancy. ULTRASOUND: Limited right breast ultrasound: Mildly dilated ducts are present near the nipple at 6:00. No suspici ous masses are identified to suggest malignancy. Limited left breast ultrasound: At 3:30, 11 cm from the nipple there is a circumscribed parallel orie nted oval mass measuring 1.5 x 1.3 x 0.7 cm. There are internal cystic changes. No posterior acoustic enhancement. There is marginal vascularity. This compares with prior ultrasound dated 08/20/2023 whe n the mass measured 1.9 x 1.4 x 0.6 cm. IMPRESSION: 1. Diminished size of benign-appearing left breast mass at 3:30, 11 cm from the nipple measuring 1.5 cm. No evidence for malignancy in the right breast. 2. Given one year of interval stability, recommend 12 month followup Limited left breast ultrasound a nd bilateral screening mammogram recommended. BI-RADS category 3, probably benign findings. Reviewed, dictated and finalized at location A. IMPRESSION: 1. Diminished size of benign-appearing left breast mass at 3:30, 11 cm from the nipple measuring 1.5 cm. No evidence for malignancy in the right breast. 2. Given one year of interval stability, recommend 12 month followup Limited le ft breast ultrasound and bilateral screening mammogram recommended. BI-RADS category 3, probably benign findings.
--- OUTSIDE RECORDS SUMMARY | 2024-09-13 11:47 | XMS_ITS | Clinical Summary ---
Author Organization [facility] Address [address] [place] [address] Care Team Providers Care Technical Spec Name Role Phone Prince Soto MD Primary Care Provider Emanuel Alvarado MD, Hung Unavailable [phone] Moy Silverio MD Unavailable Allergies No known active allergies Medications atorvastatin (LIPITOR) 80 mg tablet Take 1 tablet (80 mg total) by mouth nightly 06/04/2017 Active cholecalciferol (VITAMIN D-3) 1,000 unit tablet Take 1 tablet (1,000 Units total) by mouth nightly Active omega-3 fatty acids-fish oil 340-1,000 mg capsule Take 1 capsule by mouth nightly Active aspirin 81 mg tablet Take 1 tablet (81 mg total) by mouth nightly Active cyanocobalamin (Vitamin B-12) 500 mcg tabletIndicatio ns:Prevention of Vitamin B12 Deficiency 05/21/2012 Active ANORO ELLIPTA 62.5-25 mcg/actuation blister with device 01/30/2019 Active folic acid (FOLVITE) 400 mcg tablet Take 1 tablet (400 mcg total) by mouth daily Active Glyxambi 10-5 mg tablet Take 1 tablet by mouth daily Active dorzolamide-cathie oloL (COSOPT) 22.3-6.8 mg/mL ophthalmic solution 1 drop 2 (two) times a day 04/21/2024 Active latanoprost (XALATAN) 0.005 % ophthalmic solution INSTILL 1 DROP INTO BOTH EYES AT BEDTIME DIRECTED 02/21/2024 Active losartan (COZAAR) 100 mg tablet Take 1 tablet (100 mg total) by mouth daily Active Active Problems Problem Noted Date Diagnosed Date Primary open angle glaucoma (POAG) of both eyes, mild stage 05/28/2024 Overview (05/28/2024): FHx: - CCT: 577/551 Gonio: OD IV, OS III Tmax: 25 per pt Sx: ceiol OU, ? Laser PI or SLT per documentation Gtt: cosopt, latanoprost Intolerances: brimonidine - injection Ocular Hx: narrow angles Assessment & Plan (05/28/2024 9:23 PM STEWARD/STEWARDESS SECOND): New pt referred by Dr. Bragg for poag evaluation Intraocular pressure (IOP) elevated after cataract extraction (CE) in 2020 Per documentation had h/o narrow angles OU Pt notes intraocular pressure (IOP) up to low to mid 20s? Fluctuations documented Open angles ? 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 Tolerating 3 classes at this time. CPM F/U with Dr. 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 She was first dx with this ~8 months ago and has been noted to have persistent signs of inflammation. Prior labs show a negative TRENA and HLA B27. She reports sicca symptoms. Otherwise denies inflammatory sounding joint pain, CTD symptoms, or symptoms concerning for IBD. Her exam today is largely unremarkable. Our serologic workup was negative. Overall there is not evidence at this time of any underlying rheumatologic diagnosis which could be contributory to her iridocyclitis. She will continue follow up with her eye doctor and will return here as needed. Assessment & Plan (11/22/2022 3:49 PM CDT): 77yoF presents for evaluation to rule out underlying rheumatologic dx which could be related to iridocyclitis. She was first dx with this ~8 months ago and has been noted to have persistent signs of inflammation. Prior labs show a negative TRENA and HLA B27. She reports sicca symptoms. Otherwise denies inflammatory sounding joint pain, CTD symptoms, or symptoms concerning for IBD. Her exam today is largely unremarkable. To further evaluate, will check labs as below. Request records from Dr. Bragg. Plan follow up in 2 weeks to review results. Pericardial effusion 11/28/2019 Malignant neoplasm of upper lobe of left lung Hiatal hernia 07/17/2017 HTN (hypertension) 07/17/2017 Type 2 diabetes mellitus 07/17/2017 Encounters Date Type Department Care Team Description 06/23/2024 10:15 AM STEWARD/STEWARDESS SECOND Ancillary Procedure [facility] [address] [place] [address] Pericardial effusion from Last 3 Months Immunizations Immunization Administration Dates Next Due Influenza, Quadrivalent, Bhakti l Culture-based MDCK, Preservative Free, Antibiotic Free, Intramuscular 02/11/2018 Influenza, Unspecified 01/12/2017 Pneumococcal, Unspecified 02/11/2017 ZOSTER LIVE 02/11/2017 Surgical History Surgery Date Site/Laterality Comments TONSILLECTOMY 1950s APPENDECTOMY 1950s APPENDECTOMY COLONOSCOPY LAPAROSCOPY REPAIR HIATAL HERNIA CATARACT EXTRACTION Medical History Medical History Date Comments Hiatal hernia 07/17/2017 HTN (hypertension) 07/17/2017 Type 2 diabetes mellitus (HCC) 07/17/2017 Arthritis Lung cancer (HCC) Hyperlipidemia COPD (chronic obstructive pulmonary disease) (HC C) Family History Medical History Relation Name Comments Coronary artery disease Father Stroke Father PONV Mother Hemophilia Son Relation Name Status Comments Father Mother Son Social History Tobacco Use Types Packs/Day Years Used Date Smoking Tobacco: Former Cigarettes Q uit: 1984 Smokeless Tobacco: Never Tobacco Cessation:Counseling Given: Not Answered Alcohol Use Standard Drinks/Week Comments Yes 1 (1 standard drink = 0.6 oz pur e alcohol) daily Comments No Sex and Gender Information Value Date Recorded Sex Assigned at Not on file Legal Sex Female 1:56 AM STEWARD/STEWARDESS SECOND Gender Identity Not on file Sexual Orientation Not on file Obstetrics History Last Filed Vital Signs Vital Sign Reading Time Taken Comments Blood Pressure 120/70 02/06/2024 10:21 AM CDT Pulse 67 02/06/2024 10:21 AM CDT Temperature 36.2 C (97.1 F) 01/16/2020 2:42 PM CDT Respiratory Rate 18 02/01/2023 10:39 AM CDT Oxygen Saturation 95% 02/06/2024 10:21 AM CDT Inhaled Oxygen Concentration - - Weight 78.5 kg (173 lb) 02/06/2024 10:21 AM CDT Height 170.2 cm (5' 7 ) 02/06/2024 10:21 AM CDT Body Mass Index 27.1 02/06/2024 10:21 AM CDT Plan of Treatment Health Maintenance Due Date Last Done Comments Albumin Creatinine Ratio, Urine 1945 Depression Screening 1945 Hepatitis C Screening 1945 Osteoporosis Screening-Bone Density Scan 1945 Foot Exam 1945 DTaP/Tdap/Td Vaccine (1 - Tdap) 1958 Hepatitis B Screening 1965 Well Visit 65+ 2012 Hemoglobin A1C 01/17/2018 07/17/2017 eGFR 07/28/2018 07/28/2017, 07/12, 07/26/2017, Additional history exists Zoster Vaccine (2 of 3) 11/25/2018 10/01/19 19, 07/23/2018, 02/11/2017, Additional history exists Fall Risk Assessment 02/05/2021 02/06/2020, 11/24/19 20 Lipid Panel 12/29/2023 12/28/2022, 09/11, 09/13/2020, Additional history exists Influenza Vaccine (Season Ended) 2025 02/11/2018, 02/28/2017, 01/12/2017, Additional history exists Dilated Eye Exam 05/28/2025 05/28/2024 Colon Cancer Screening-CT Colonography Discontinued 10/30/2013 Colon Cancer Screening-Colonoscopy Discontinued 10/30/2013 Colon Cancer Screening-DNA Stool Discontinued 10/31/19 14 Colon Cancer Screening-FIT Discontinued 10/30/2013 Colon Cancer Screening-FOBT Discontinued 10/30/2013 Colon Cancer Screening-Sigmoidoscopy Discontinued 10/30/2013 Colorectal Cancer Screening Discontinued Pneumococcal vaccine 65+ Completed 017, 02/25/2016, 02/21/2013 Breast Cancer Screening-Mammogram Discontinued 024, 04/03/2022 Medical Devices Implanted Type Area Digital Forensic Examiner Device Identifier Shelf Expiration Date Model / Serial / Lot Matrix Tissue Strattice Porcine Dermis L8 Cm X W6 Cm Reconstructive Sterile - [id number] Implanted:Qty: 1 on 07/25/2017 by Uli Rousseau MD at [facility] [employer] 12/11/2018 [id number] / / [id number] Procedures Procedure Name Priority Date/Time Associated Diagnosis Comments TRANSTHORACIC ECHO (TTE) LIMITED/FOLLOW UP W LTD DOPPLER/CF W CONTRAST Routine 06/23/2024 10:28 AM STEWARD/STEWARDESS SECOND Pericardial effusion LIPID PANEL Routine 12/28/2022 4:09 PM CDT EGFR Routine 07/28/2017 5:51 AM CDT HEMOGLOBIN A1C Routine 07/17/2017 1:45 PM STEWARD/STEWARDESS SECOND Pre-op evaluation COLONOSCOPY REPORT 10/30/2013 from Last 3 Months or Most Recently Relevant to Health Maintenance Results * TRANSTHORACIC ECHO (TTE) LIMITED/FOLLOW UP W LTD DOPPLER/CF W CONTRAST (06/23/2024 10:28 AM STEWARD/STEWARDESS SECOND) LV EF % CONS SCIMAGE Anatomical Region Laterality Modality Ultrasound 06/23/2024 9:49 AM STEWARD/STEWARDESS SECOND Narrative 06/23/2024 5:42 PM STEWARD/STEWARDESS SECOND [facility] [address], [place] [address] [address] [facility] [address], [place] [address] P:[phone] P:[phone] Echocardiographic Report ADDENDUM Patient Name: JEREMIAH HUTCHINSON A : 1945 Study Date: 06/23/2024 9:49:37 AM Gender: F Tech: SW Ref Provider: KB MARTIN Height(Cm): 170 BSA: 1.93 Weight(Kg): 78.5 Heart Rate: 72 BP: 141 / 78 Quality: Good Order Provider: KB MARTIN PROCEDURES: Echocardiographic Report: Transthoracic echocardiogram with complete 2D, M-Mode, and color Doppler examination. Limited Transthoracic echocardiogram with 2D, M-Mode, examination and Definity contrast. INDICATIONS: I31.39 Other pericardial effusion (noninflammatory). MEASUREMENTS: 2D/MM Value Range EF Mod BP 65 % [ 54 - 74 ] EF Teich MM 61 % [ 54 - 74 ] LVIDd 2D 4.50 cm [ 3.80 - 5.20 ] LVIDd MM 6.26 cm [ 3.80 - 5.20 ] LVIDs 2D 3.17 cm [ 2.20 - 3.50 ] LVIDs MM 4.15 cm [ 2.20 - 3.50 ] LVPWd MM 0.95 cm [ 0.60 - 0.90 ] IVSd 2D 0.92 cm [ 0.60 - 0.90 ] IVSd MM 1.07 cm [ 0.60 - 0.90 ] LA Dimension MM 3.37 cm [ 2.70 - 3.80 ] AoR Diam MM 3.61 cm [ 2.70 - 3.70 ] LA Volume Index 26 cc/m2 [ 16 - 34 ] ACS MM 1.96 cm 2D/MM Value Range - FINDINGS: Interpretation Site: Exam was interpreted at [facility]. Left Ventricle: Normal left ventricular systolic function. No focal wall motion abnormalities. Normal left ventricular size. Mild concentric left ventricular hypertrophy. Impaired diastolic relaxation Grade I. Ejection fraction is measured at 65 %. Right Ventricle: Normal right ventricular size. Normal right ventricular systolic function. Left Atrium: The left atrium is normal in size. Right Atrium: The right atrium is normal in size. Atrial Septum: Normal atrial septum. Mitral Valve: Mild mitral annular calcification. Aortic Valve: Normal appearance of the aortic valve. No evidence of hemodynamically significant aortic stenosis by Doppler. Aortic cusps appear mildly sclerotic. Trileaflet aortic valve. Tricuspid Valve: Normal appearance of the tricuspid valve. No evidence of tricuspid regurgitation. Pulmonic Valve: Pulmonic valve not well visualized. Pericardium: Small pericardial effusion. No echocardiographic evidence to suggest pericardial tamponade. Aorta: Sinus of Valsalva is normal. IVC: Normal size and normal respiratory collapse consistent with normal right atrial pressure (<5 mmHg). Pulmonary Artery: Normal pulmonary artery size. CONCLUSIONS: Normal left ventricular systolic function. Optison contrast was used. No focal wall motion abnormalities. Normal left ventricular size. Mild concentric left ventricular hypertrophy. Impaired diastolic relaxation Grade I. Ejection fraction is measured at 65 %. Small to moderate pericardial effusion. No echocardiographic evidence to suggest pericardial tamponade. Electronically Signed By: Dr. Jami Aiken [facility] 2024-06-23 17:42:22 STEWARD/STEWARDESS SECOND Electronically Amended By: Dr. Jami Aiken [facility] 06/25/2024 9:59:39 AM STEWARD/STEWARDESS SECOND [ADDENDUM] Procedure Note Jami Aiken MD - 06/25/2024 [facility] [address] [facility] [address], [place] [address] [address] [facility] [address], [place] [address] P:[phone] P:[phone] Echocardiographic Report ADDENDUM Patient Name: JEREMIAH HUTCHINSNOCharly : 1945 Study Date: 06/23/2024 9:49:37 AM Gender: F Tech: OBDULIA Chacon Provider: KB MARTIN Height(Cm): 170 BSA: 1.93 Weight(Kg): 78.5 Heart Rate: 72 BP: 141 / 78 Quality: Good Order Provider: KB MARTIN PROCEDURES: Echocardiographic Report: Transthoracic echocardiogram with complete 2D, M-Mode, and color Dopplerexamination. Limited Transthoracic echocardiogram with 2D, M-Mode, examination andDefinity contrast. INDICATIONS: I31.39 Other pericardial effusion (noninflammatory). MEASUREMENTS: 2D/MM Value Range EF Mod BP 65 % [ 54 - 74 ] EF Teich MM 61 % [ 54 - 74 ] LVIDd 2D 4.50 cm [ 3.80 - 5.20 ] LVIDd MM 6.26 cm [ 3.80 - 5.20 ] LVIDs 2D 3.17 cm [ 2.20 - 3.50 ] LVIDs MM 4.15 cm [ 2.20 - 3.50 ] LVPWd MM 0.95 cm [ 0.60 - 0.90 ] IVSd 2D 0.92 cm [ 0.60 - 0.90 ] IVSd MM 1.07 cm [ 0.60 - 0.90 ] LA Dimension MM 3.37 cm [ 2.70 - 3.80 ] AoR Diam MM 3.61 cm [ 2.70 - 3.70 ] LA Volume Index 26 cc/m2 [ 16 - 34 ] ACS MM 1.96 cm 2D/MM Value Range - FINDINGS: Interpretation Site: Exam was interpreted at [facility]. Left Ventricle: Normal left ventricular systolic function. No focal wall motionabnormalities. Normal left ventricular size. Mild concentric left ventricular hypertrophy.Impaired diastolic relaxation Grade I. Ejection fraction is measured at 65 %. Right Ventricle: Normal right ventricular size. Normal right ventricular systolicfunction. Left Atrium: The left atrium is normal in size. Right Atrium: The right atrium is normal in size. Atrial Septum: Normal atrial septum. Mitral Valve: Mild mitral annular calcification. Aortic Valve: Normal appearance of the aortic valve. No evidence of hemodynamicallysignificant aortic stenosis by Doppler. Aortic cusps appear mildly sclerotic. Trileafletaortic valve. Tricuspid Valve: Normal appearance of the tricuspid valve. No evidence of tricuspidregurgitation. Pulmonic Valve: Pulmonic valve not well visualized. Pericardium: Small pericardial effusion. No echocardiographic evidence to suggestpericardial tamponade. Aorta: Sinus of Valsalva is normal. IVC: Normal size and normal respiratory collapse consistent with normal rightatrial pressure (<5 mmHg). Pulmonary Artery: Normal pulmonary artery size. CONCLUSIONS: Normal left ventricular systolic function. Optison contrast was used. Nofocal wall motion abnormalities. Normal left ventricular size. Mild concentric leftventricular hypertrophy. Impaired diastolic relaxation Grade I. Ejection fraction ismeasured at 65 %. Small to moderate pericardial effusion. No echocardiographic evidence tosuggest pericardial tamponade. Electronically Signed By: Dr. Jami Aiken [facility] 2024-06-23 17:42:22 STEWARD/STEWARDESS SECOND Electronically Amended By: Dr. Jami Aiken [facility] 06/25/2024 9:59:39 AM STEWARD/STEWARDESS SECOND [ADDENDUM] Kb Martin MD CV ECHO PROCEDURES Edited Result - Final * Lipid panel (12/28/2022 4:09 PM CDT) Blood Historical Provider LAB BLOOD ORDERABLES Gavi l Result * eGFR (07/28/2017 5:51 AM CDT) eGFR 66 mL/min/1.7 3 m2 [facility] Comment: Interpretive Data Reference Interval Normal >/= 90 mL/min/1.73m2 Mildly decreased* 60 - 89 mL/min/1.73m2 Mildly to moderately decreased 45 - 59 mL/min/1.73m2 Moderately to severely decreased 30 - 44 mL/min/1.73m2 Severely decreased 15 - 29 mL/min/1.73m2 Kidney Failure < 15 mL/min/1.73m2 *Relative to young adult level If -[place] Citizen multiply value by 1.16. Estimated glomerular filtration rate is determined by the CKD-EPI equation recommended by the National Kidney Foundation (KDIGO 2012 Clinical Practice Guideline for the Evaluation and Management of Chronic Kidney Disease. Kidney Intnl Suppl May 2012;3:1). The CKD-EPI equation should not be used for patients with unstable renal function and has not been validated in children and those over 70. Current interpretive data was last reviewed 2016. Blood specimen (specimen) 07/28/2017 5:51 AM CDT 07/28/2017 6:15 AM CDT Narrative [facility] - 07/28/2017 6:44 AM CDT Nani Brown VARNISH FINISHER LAB BLOOD ORDERABLES Fin al Result Performing Organization Address [facility] Co de Phone Number [facility] [address] [place] [address] * Hemoglobin A1c (07/17/2017 1:45 PM STEWARD/STEWARDESS SECOND) Hgb A1C 5.3 4.0 - 5.6 % [facility] Estimated Average Glucose 105 mg/dL [facility] Comment: The ADA recommends reporting an estimated Average Glucose (eAG) with all Hemoglobin A1c results using the equation derived from a study of 507 normal and diabetic adults. Minority populations were underrepresented and children were not included. (Diabetes Care 31:7922-1571, 2008). The eAG is not equivalent to a fasting glucose. Blood specimen (specimen) 07/17/2017 1:45 PM STEWARD/STEWARDESS SECOND 07/17/2017 1:45 PM STEWARD/STEWARDESS SECOND Narrative [facility] - 07/17/2017 2:13 PM STEWARD/STEWARDESS SECOND Nicole Morales VARNISH FINISHER LAB BLOOD ORDERABLES Final Result Performing Organization Address [facility] Co de Phone Number [facility] [address] Department [place] [address] * COLONOSCOPY REPORT (10/30/2013) Anatomical Region Laterality Modality Other Narrative 10/30/2013 Ordered by an unspecified provider. us Historical Provider GI PROCEDURE ORDERABLES F inal Result from Last 3 Months or Most Recently Relevant to Health Maintenance Insurance MEDICARE [facility] MEDICARE [facility] H[facility]/PPO Address: [facility] [id number] [place] [id number] MEDICARE MEDICARE [facility] Advance Directives For more information, please contact: [phone] * Full Code (Latest Code Status on File) Date Activated Date Inactivated Comments 07/25/2017 2:45 PM 07/30/2017 4:19 PM Care Teams Technical Spec Relationship Specialty Start Date End Date Prince Soto MD [address] [place] [address] PCP - General 12/05/11 Hung Castellanos Jr., MD [address] [place] [address] Medical Oncologist/Health Promotion Officer Medical Oncology 11/27/19 Moy Silverio MD [address] [place] [address] Consulting Physician Rheumatology 10/05/22
--- OUTSIDE RECORDS SUMMARY | 2024-09-13 11:47 | XMS_ITS | Clinical Summary ---
Author Organization [facility] Kayode villagomez Shanthi Address [address] [place] [address] Care Team Providers Care Financial Internship Name Role Phone Prince Soto MD Primary Care Provider + Allergies No known active allergies Medications Anoro Ellipta 62.5-25 mcg/actuation Disk with Device 12/22/2019 Active triamcinolone acetonide (KENALOG) 0.5 % Cream APPLY TO AFFECTED AREA TWICE A DAY 12/24/2019 Active naftifine 2 % Cream Apply to affected area. 06/07/2017 Active folic acid (FOLVITE) 400 mcg Tablet Take 400 mcg by mouth. Active cyanocobalamin (VITAMIN B-12) 500 mcg tablet 05/21/2012 Acti ve cholecalciferol , vitamin D3, 1,000 unit Take 1,000 Units by mouth daily at bedtime. Active atorvastatin (LIPITOR) 80 mg tablet 01/03/2020 Active Alphagan P 0.1 % solution INSTILL 1 DROP IN EACH EYE 2 TIMES PER DAY 12/22/2021 Active Glyxambi 10-5 mg tablet Take 1 Tablet by mouth daily. 12/27/2021 Active losartan (COZAAR) 100 mg tablet Take 100 mg by mouth daily. 11/15/2022 Active fish oil-omega-3 fatty acids 340-1,000 mg Capsule Take 1 Capsule by mouth daily at bedtime. Active Active Problems Problem Noted Date Diagnosed Date History of lung cancer 01/16/2020 Encounters Date Type Department Care Team Description 07/02/2024 External Device Data STL ABSTRACTION Provider, Abstract from Last 3 Months Family History Medical History Relation Name Comments Heart Disease Father Cancer Mother Relation Name Status Comments Brother Alive Daughter Alive Father Mother UTERINE CANCER Son Alive Social History Tobacco Use Types Packs/Day Years Used Date Smoking Tobacco: Former Cigarettes 1 20 0 01/15/1985 - 01/15/2005 Smokeless Tobacco: Never Tobacco Cessation:Counseling Given: Not Answered Alcohol Use Standard Drinks/Week Comments Yes 2 (1 standard drink = 0.6 oz pur e alcohol) DAILY Comments No Sex and Gender Information Value Date Recorded Sex Assigned at Not on file Legal Sex Female 1:37 PM CDT Gender Identity Not on file Sexual Orientation Not on file Last Filed Vital Signs Vital Sign Reading Time Taken Comments Blood Pressure 130/76 01/10/2024 11:40 AM CDT Pulse 69 01/10/2024 11:40 AM CDT Temperature 36.3 C (97.3 F) 01/10/2024 11:40 AM CDT Respiratory Rate 16 01/10/2024 11:40 AM CDT Oxygen Saturation 94% 01/10/2024 11:40 AM CDT Inhaled Oxygen Concentration - - Weight 75.8 kg (167 lb) 01/10/2024 11:40 AM CDT Height 170.2 cm (5' 7 ) 01/10/2022 3:30 PM CDT Body Mass Index 26.16 01/10/2022 3:30 PM CDT Plan of Treatment Upcoming Encounters Date Type Department Care Team (Late st Contact Info) Description 01/15/2025 10:00 AM CDT Office Visit [facility] Oncology and Hematology - [place] [address] [facility] [address] [place] [address] Yves Balderas MD [address] [facility] [address] [place] [address] Health Maintenance Due Date Last Done Comments DIABETES ANNUAL FOOT EXAM 1965 DIABETES MICROALBUMIN ANNUAL SCREEN 1965 LDL CHOLESTEROL ANNUAL 1965 DTAP/TDAP/TD VACCINES (1 - Tdap) 1966 PNEUMOCOCCAL VACCINE 50+ YEA RS (1 of 2 - PCV) 1966 02/11/2017 ZOSTER VACCINE (2 of 3) 04/08/2017 02/11/2017 OSTEOPOROSIS SCREENING 11/17/2019 11/16/2014 RSV VACCINE (60+ or ) (1 - 1-dose 75+ series) 2022 INFLUENZA VACCINE (#1) 2023 02/11/2018 DIABETES HBA1C Q 6 MONTHS 04/18/20242023, 05/16/2023, 12/28/2022, Additional history exists DIABETES ANNUAL RETINAL EXAM 07/03/2024, 06/01/2021, 06/01/2021, Additional history exists COLORECTAL SCREENING Discontinued 01/22/2019 Colorectal Cancer Screening Discontinued FIT-DNA Q 3 years Discontinued FIT/FOBT Q 1 year Discontinued Flex Sig/CT Colonography Q 5 years Discontinued Insurance MEDICARE PART A AND B BCBS TRADITIONAL AET[employer] CHOICE POS II Care Teams Financial Internship Relationship Specialty Start Date End Date Prince Soto MD [address] [place] [id number] PCP - General Internal Medicine 01/14/20
--- OUTSIDE RECORDS SUMMARY | 2024-09-13 11:47 | XMS_ITS | Referral Summary ---
Author Organization [facility] Address [address] [place] [address] Care Team Providers Care News Director Name Role Phone Prince Soto MD Primary Care Provider [phone] Emanuel Alvarado MD, Hung Unavailable [phone] Moy Silverio MD Unavailable [phone] Encounters Date Type Department Care Team Description 06/23/2024 10:15 AM FLOATING DERRICK OPERATOR Ancillary Procedure [facility] Card[facility] [address] [place] [address] Pericardial effusion from Last 3 Months Allergies No known active allergies Medications atorvastatin [...] angles Assessment & Plan (05/28/2024 9:23 PM FLOATING DERRICK OPERATOR): New pt referred by Dr. Bragg for [...] (hypertension) 07/17/2017 Type 2 diabetes mellitus 07/17/2017 Immunizations Immunization Administration Dates Next Due Influenza, Quadrivalent, Bhakti l Culture-based MDCK, Preservative Free, Antibiotic Free, Intramuscular 02/11/2018 Influenza, Unspecified 01/12/2017 Pneumococcal, Unspecified 02/11/2017 ZOSTER LIVE 02/11/2017 Social History Tobacco Use Types Packs/Day Years Used Date Smoking Tobacco: Former Cigarettes Q uit: 1984 Smokeless Tobacco: Never Tobacco Cessation:Counseling Given: Not Answered Alcohol Use Standard Drinks/Week Comments Yes 1 (1 standard drink = 0.6 oz pur e alcohol) daily Comments No Sex and Gender Information Value Date Recorded Sex Assigned at Not on file Legal Sex Female 1:56 AM FLOATING DERRICK OPERATOR Gender Identity Not on file Sexual Orientation [...] 02/06/2024 10:21 AM CDT Plan of Treatment Not on file Medical Devices Implanted Type Area Certified Real Estate Appraiser Device Identifier Shelf Expiration Date Model / Serial / Lot Matrix Tissue Strattice Porcine Dermis L8 Cm X W6 Cm Reconstructive Sterile - [id number] Implanted:Qty: 1 on 07/25/2017 by Uli Rousseau MD at [facility] [employer] 12/11/2018 [id number] / / [id number] Procedures Procedure Name Priority Date/Time Associated Diagnosis Comments TRANSTHORACIC ECHO (TTE) LIMITED/FOLLOW UP W LTD DOPPLER/CF W CONTRAST Routine 06/23/2024 10:28 AM FLOATING DERRICK OPERATOR Pericardial effusion LIPID PANEL Routine 12/28/2022 4:09 PM CDT EGFR Routine 07/28/2017 5:51 AM CDT HEMOGLOBIN A1C Routine 07/17/2017 1:45 PM FLOATING DERRICK OPERATOR Pre-op evaluation COLONOSCOPY REPORT 10/30/2013 from Last 3 Months or Most Recently Relevant to Health Maintenance Results * TRANSTHORACIC ECHO (TTE) LIMITED/FOLLOW UP W LTD DOPPLER/CF W CONTRAST (06/23/2024 10:28 AM FLOATING DERRICK OPERATOR) LV EF % CONS SCIMAGE Anatomical Region Laterality Modality Ultrasound 06/23/2024 9:49 AM FLOATING DERRICK OPERATOR Narrative 06/23/2024 5:42 PM FLOATING DERRICK OPERATOR [facility] Cardiology [address], [place] [address] [address] [facility] [address], [place] [address] P:[phone] P:[phone] Echocardiographic Report ADDENDUM Patient Name: JEREMIAH HUTCHINSON [...] FINDINGS: Interpretation Site: Exam was interpreted at [facility]. Left Ventricle: Normal left ventricular systolic function. [...] tamponade. Electronically Signed By: Dr. Jami Aiken [facility] 2024-06-23 17:42:22 FLOATING DERRICK OPERATOR Electronically Amended By: Dr. Jami Aiken [facility] 06/25/2024 9:59:39 AM FLOATING DERRICK OPERATOR [ADDENDUM] Procedure Note Jami Aiken MD - 06/25/2024 [facility] Cardiology [address], [place] [address] [address] [facility] [address], [place] [address] P:[phone] P:[phone] Echocardiographic Report ADDENDUM Patient Name: JEREMIAH HUTCHINSON A : 1945 Study Date: 06/23/2024 9:49:37 AM Gender: F Tech: [facility] Provider: KB MARTIN Height(Cm): 170 BSA: 1.93 [...] FINDINGS: Interpretation Site: Exam was interpreted at [facility]. Left Ventricle: Normal left ventricular systolic function. [...] tamponade. Electronically Signed By: Dr. Jami Aiken [facility] 2024-06-23 17:42:22 FLOATING DERRICK OPERATOR Electronically Amended By: Dr. Jami Aiken [facility] 06/25/2024 9:59:39 AM FLOATING DERRICK OPERATOR [ADDENDUM] Kb Martin MD CV ECHO PROCEDURES Edited Result - Final * Lipid panel (12/28/2022 4:09 PM CDT) Blood Historical Provider LAB BLOOD ORDERABLES Gavi l Result * eGFR (07/28/2017 5:51 AM CDT) eGFR 66 mL/min/1.7 3 m2 [facility] Comment: Interpretive Data Reference Interval Normal >/= 90 mL/min/1.73m2 Mildly decreased* 60 - 89 mL/min/1.73m2 Mildly to moderately decreased 45 - 59 mL/min/1.73m2 Moderately to severely decreased 30 - 44 mL/min/1.73m2 Severely decreased 15 - 29 mL/min/1.73m2 Kidney Failure < 15 mL/min/1.73m2 *Relative to young adult level If -[place] multiply value by 1.16. Estimated glomerular filtration [...] AM CDT 07/28/2017 6:15 AM CDT Narrative [facility] - 07/28/2017 6:44 AM CDT Nani Brown JEWELRY SALES REPRESENTATIVE LAB BLOOD ORDERABLES Fin al Result Performing Organization Address [facility] de Phone Number [facility] [address] Department [place] [address] * Hemoglobin A1c (07/17/2017 1:45 PM FLOATING DERRICK OPERATOR) Hgb A1C 5.3 4.0 - 5.6 % [facility] Estimated Average Glucose 105 mg/dL [facility] Comment: The ADA recommends reporting an estimated Average Glucose (eAG) with all Hemoglobin A1c results using the equation derived from a study of 507 normal and diabetic adults. Minority populations were underrepresented and children were not included. (Diabetes Care 31:6697-1490, 2008). The eAG is not equivalent to a fasting glucose. Blood specimen (specimen) 07/17/2017 1:45 PM FLOATING DERRICK OPERATOR 07/17/2017 1:45 PM FLOATING DERRICK OPERATOR Narrative [facility] - 07/17/2017 2:13 PM FLOATING DERRICK OPERATOR Nicole Morales JEWELRY SALES REPRESENTATIVE LAB BLOOD ORDERABLES Final Result Performing Organization Address [facility] de Phone Number [facility] [address] Department [place] [address] * COLONOSCOPY REPORT (10/30/2013) Anatomical Region Laterality Modality Other Narrative 10/30/2013 Ordered by an unspecified provider. us Historical Provider GI PROCEDURE ORDERABLES F inal Result from Last 3 Months or Most Recently Relevant to Health Maintenance Insurance MEDICARE [facility] MEDICARE [facility] H[facility]/PPO Address: [address] [place] [address] [facility] HMO/PPO Address[facility] [address] [place] [address]IC[address] [facility] [facility] Advance Directives For more information, please contact: [phone] * Full Code (Latest Code Status on File) Date Activated Date Inactivated Comments 07/25/2017 2:45 PM 07/30/2017 4:19 PM Care Teams News Director Relationship Specialty Start Date End Date Prince Soto MD [address] [place] [address] PCP - General 12/05/11 Hung Castellanos Jr., MD [address] [place] [address] Medical Oncologist/Etl Database Developer Medical Oncology 11/27/19 Moy Silverio MD [address] [place] [address] Consulting Physician Rheumatology 10/05/22
--- OUTSIDE RECORDS SUMMARY | 2024-09-13 11:47 | XMS_ITS | Patient Health Record ---
Author Organization [facility] Address [address] [facility] [place] [address] Care Team Providers Care Laser Cutter Name Role Phone Brittany FRANCE, Prince Primary Care Provider Unavailab cristiane ROBISON MD, DOROTHEA Unavailable REASON FOR REFERRAL No Information PROBLEMS Problem Type ICD Code Onset Dates Problem Status W/U Status Risk SNOMED Code Notes Problem Personal history of colonic polyps (Z86.010) Active confirmed History of polyp of colon (situation) (051773377) PLAN OF TREATMENT Pending Test Test Name Order Date Colonoscopy 10/24/2018 Insurance Providers Payer Name Payer Address Payer Phone Subscriber Number Group Number Insured Name Patient Relationship to Insured Coverage Start Date Coverage End Date Medicare-M O Medicare [address] [address] [place], [place] [id number] Cameron Hutchinson Self - patient is the insured [facility] [address] [place], [place] [id number] Cameron uHtchinson Self - patient is the insured
--- OUTSIDE RECORDS SUMMARY | 2024-09-13 11:47 | XMS_ITS | Clinical Summary ---
Author Organization [facility] Address [address] [place] [address] Care Team Providers Care Web Systems Developer Name Role Phone Prince Soto MD Primary Care Provider [phone] Social History Tobacco Use Types Packs/Day Years Used Date Smoking Tobacco: Never Assessed Comments Unknown Sex and Gender Information Value Date Recorded Sex Assigned at Not on file Legal Sex Female 2:41 PM CDT Gender Identity Not on file Sexual Orientation Not on file Plan of Treatment Health Maintenance Due Date Last Done Comments Hepatitis C 1963 DTaP, Tdap and Td Vaccines (1 - Tdap) 1964 Annual Medicare Wellness Visit 2012 Dexa Scan (General) 2012 Pneumococcal Vaccine: 50+ Years (2 of 2 - PPSV23) 02/24/2017 02/25/2016 Zoster Vaccines (2 of 3) 11/25/2018 019, 07/23/2018, 02/11/2017, Additional history exists RSV Immunization or 60+ Years (1 - 1-dose 75+ series) 2022 COVID-19 Vaccine (3 - season) 2024 07/20/2020, 06/16/2020 Meningococcal B Vaccine Aged Out No l onger eligible based on patient's age to complete this topic Meningococcal Vaccine Aged Out No maia ijm eligible based on patient's age to complete this topic RSV Immunizations Under 20 Months Aged Out No longer eligible based on patient's age to complete this topic Insurance MEDICARE AETNA [place] [id number] Care Teams Web Systems Developer Relationship Specialty Start Date End Date Prince Soto MD [address] [place] [address] PCP - General INTERNAL MEDICINE 01/12/21
--- OUTSIDE RECORDS SUMMARY | 2024-09-13 11:47 | XMS_ITS ---
Author Organization [facility] Address [address] [place] [address] Care Team Providers Care Msw Name Role Phone Prince Soto MD Primary Care Provider [phone] Emanuel Alvarado MD, Hung Unavailable [phone] Moy Silverio MD Unavailable [phone] Active Problems Problem Noted Date Diagnosed Date Primary open angle glaucoma (POAG) of both eyes, mild stage 05/28/2024 Overview (05/28/2024): FHx: - CCT: 577/551 Gonio: OD IV, OS III Tmax: 25 per pt Sx: ceiol OU, ? Laser PI or SLT per documentation Gtt: cosopt, latanoprost Intolerances: brimonidine - injection Ocular Hx: narrow angles Assessment & Plan (05/28/2024 9:23 PM NON CLINICAL ADVISOR): New pt referred by Dr. Bragg for [...] Assessment & Plan (12/22/2022 9:32 AM CDT): 77yoNelson presents for evaluation to rule out underlying [...] (hypertension) 07/17/2017 Type 2 diabetes mellitus 07/17/2017 Current Treatment and Therapy Plans No current plan information found. Past Treatment and Therapy Plans No past plan information found. Lifetime Dose Tracking * Chemical Lifetime Dose Automatic Entry Manual Entr y Fluoro Time 1.633 minutes 1.633 minutes 0 minutes
== END 2024-09-12 10:21 | disposition home or self-care (01) ==
LOC: ANHIMG 10:21
PROVIDERS: PCP Internal Medicine; Visit Provider Physician Assistant Surgical
DX: N63.20 Unspecified lump in the left breast, unspecified quadrant (principal); R92.8 Other abnormal and inconclusive findings on diagnostic imaging of breast
CPT/HCPCS: 76642; 77062; 77066; G0279

== ENCOUNTER 2024-10-30 15:45 | Outpatient (CLI) | payer MEDICARE, OTHER, SELFPAY ==
--- NOTE | ~2024-10-30 | US_ITS ---
EXAMINATION: US thyroid DATE: 10/30/2024 16:53 INDICATION: Nontoxic single thyroid nodule TECHNIQUE: Multiple ultrasound images of the thyroid were obtained. COMPARISON: 10/25/2023 FINDINGS: The right thyroid lobe measures 3.8 x 1.9 x 2.5 cm. Within the upper pole of the right lobe of the thyroid gland is a 16 x 11 x 9.2 mm nodule: Composition -mixed cystic and solid (1) Echogenicity - primarily anechoic Shape - wider than tall Margin - smooth Echogenic foci -macrocalcifications (1) = TR2 not suspicious. The left thyroid lobe measures 4.8 x 1.6 x 2.7 cm. Within the upper pole of the left lobe of the thyroid gland is a 16 x 13 x 13 mm nodule: Composition - solid or almost completely solid (2) Echogenicity -hyperechoic and isoechoic (1) Shape - wider than tall Margin - smooth Echogenic foci - none = TR3 Mildly suspicious Greater than or equal to 1.5 cm: Follow-up Greater than or equal to 2.5 cm: FNA The isthmus measures 0.5cm in anterior to posterior dimension. There is otherwise heterogeneous echotexture and echogenicity throughout the remainder of the thyroid gland. No additional discrete suspicious nodules identified. Increased vascular flow is present. IMPRESSION: TR2 nodule in the right lobe of the thyroid gland measuring 16 mm in greatest dimension. This nodule is not sonographically suspicious and no FNA is recommended TR 3 nodule within the upper pole of the left lobe of the thyroid gland measuring 16 mm in greatest d imension. This nodule is mildly suspicious for which follow-up (in 12 months) is recommended. No FNA is recommended, based on size criteria. Reviewed, dictated and finalized at location A. IMPRESSION: TR2 nodule in the right lobe of the thyroid gland measuring 16 mm in greatest d imension. This nodule is not sonographically suspicious and no FNA is recommended TR 3 nodule within the upper pole of the left lobe of the thyroid gland measuri ng 16 mm in greatest dimension. This nodule is mildly suspicious for which follow-up (in 12 months) is recommen ded. No FNA is recommended, based on size criteria.
--- OUTSIDE RECORDS SUMMARY | 2024-10-30 15:48 | XMS_ITS | Referral Summary ---
Author Organization [facility] Address [address] [place] [address] Care Team Providers Care Floorworker Name Role Phone Prince Soto MD Primary Care Provider Emanuel Alvarado MD, Hung Unavailable [phone] Moy Silverio MD Unavailable [phone] Encounters Date Type Department Care Team Description 10/08/2024 11:15 AM CDT Office Visit [facility] Cardiology [address] [place] [address] Kb Kaplan MD Pericardial effusion (Primary Dx); Diastolic dysfunction; Hypertension associated with diabetes (HCC); Lipid screening 09/17/2024 Telephone [facility] Ophthalmology [address] [place] [address] Jeannette Napier MD Medical Records Request from Last 3 Months Allergies No known [...] angles Assessment & Plan (05/28/2024 9:23 PM PLATINUMSMITH): New pt referred by Dr. Bragg for [...] on file Legal Sex Female 1:56 AM PLATINUMSMITH Gender Identity Not on file Sexual Orientation Not on file Last Filed Vital Signs Vital Sign Reading Time Taken Comments Blood Pressure 126/84 10/08/2024 11:09 AM CDT Pulse 93 10/08/2024 11:09 AM CDT Temperature 36.2 C (97.1 F) 01/16/2020 2:42 PM CDT Respiratory Rate 20 10/08/2024 11:09 AM CDT Oxygen Saturation 97% 10/08/2024 11:09 AM CDT Inhaled Oxygen Concentration - - Weight 73 kg (161 lb) 10/08/2024 11:09 AM CDT Height 170.2 cm (5' 7) 10/08/2024 11:09 AM CDT Body Mass Index 25.22 10/08/2024 11:09 AM CDT Plan of Treatment Not on file Medical Devices Implanted Type Area Home Health Aide Device Identifier Shelf Expiration Date Model / Serial / Lot Matrix Tissue Strattice Porcine Dermis L8 Cm X W6 Cm Reconstructive Sterile - [id number] Implanted:Qty: 1 on 07/25/2017 by Uli Rousseau MD at [facility] [employer] 12/11/2018 [id number] / / [id number] Procedures Procedure Name Priority Date/Time Associated Diagnosis Comments POCT LIPID PANEL Routine 10/08/2024 11:0 4 AM CDT Lipid screening EGFR Routine 07/28/2017 5:51 AM CDT HEMOGLOBIN A1C Routine 07/17/2017 1:45 PM PLATINUMSMITH Pre-op evaluation COLONOSCOPY REPORT 10/30/2013 from Last 3 Months or Most Recently Relevant to Health Maintenance Results * POCT lipid panel (10/08/2024 11:04 AM CDT) Cholesterol, POC 190 <200 MG/DL HDL, POC 99 >=40 mg/dL Triglycerides, POC 97 <=149 mg/dL LDL Cholesterol POC 71.60 <=129 mg/dL Cholesterol Total, POC 190 30 - 199 mg/dL Capillary blood 10/08/2024 1 1:04 AM CDT Kb Kaplan MD POINT OF CARE TEST ORDERABLES Fi nal Result * eGFR (07/28/2017 5:51 AM CDT) eGFR 66 mL/min/1.7 3 m2 [facility] Comment: Interpretive Data Reference Interval Normal >/= 90 mL/min/1.73m2 Mildly decreased* 60 - 89 mL/min/1.73m2 Mildly to moderately decreased 45 - 59 mL/min/1.73m2 Moderately to severely decreased 30 - 44 mL/min/1.73m2 Severely decreased 15 - 29 mL/min/1.73m2 Kidney Failure < 15 mL/min/1.73m2 *Relative to young adult level If -German multiply value by 1.16. Estimated glomerular filtration [...] AM CDT 07/28/2017 6:15 AM CDT Narrative [facility] - 07/28/2017 6:44 AM CDT Nani Brown NP LAB BLOOD ORDERABLES Fin al Result [facility] [address] Department [place] [address] * Hemoglobin A1c (07/17/2017 1:45 PM PLATINUMSMITH) Hgb A1C 5.3 4.0 - 5.6 % [facility] Estimated Average Glucose 105 mg/dL [facility] Comment: The ADA recommends reporting an estimated Average Glucose (eAG) with all Hemoglobin A1c results using the equation derived from a study of 507 normal and diabetic adults. Minority populations were underrepresented and children were not included. (Diabetes Care 31:2674-1018, 2008). The eAG is not equivalent to a fasting glucose. Blood specimen (specimen) 07/17/2017 1:45 PM PLATINUMSMITH 07/17/2017 1:45 PM PLATINUMSMITH Narrative [facility] - 07/17/2017 2:13 PM PLATINUMSMITH Nicole [address] NP LAB BLOOD ORDERABLES Final Result [facility] [address] Department [place] [address] * COLONOSCOPY REPORT (10/30/2013) Anatomical Region Laterality Modality Other Narrative 10/30/2013 Ordered by an unspecified provider. Historical Provider GI PROCEDURE ORDERABLES F inal Result from Last 3 Months or Most Recently Relevant to Health Maintenance Insurance MEDICARE [facility] [place] [address] MEDICARE [facility] O MEDICARE MEDICARE [facility] Advance Directives For more information, please contact: [phone] * Full Code (Latest Code Status on File) Date Activated Date Inactivated Comments 07/25/2017 2:45 PM 07/30/2017 4:19 PM Care Teams Floorworker Relationship Specialty Start Date End Date Prince Soto MD [address] [place] [address] PCP - General 12/05/11 Hung Castellanos Jr., MD [address] [place] [address] Medical Oncologist/Photo Studio Assistant Medical Oncology 11/27/19 Moy Silverio MD [address] [place] [address] Consulting Physician Rheumatology 10/05/22
--- OUTSIDE RECORDS SUMMARY | 2024-10-30 15:49 | XMS_ITS ---
Author Organization [facility] Address [address] [place] [address] Care Team Providers Care Gun Profiler Name Role Phone Prince Soto MD Primary Care Provider [phone] Emanuel Alvarado MD, Hung Unavailable [phone] Moy Silverio MD Unavailable [phone] Active Problems Problem Noted Date Diagnosed Date Primary open angle glaucoma (POAG) of both eyes, mild stage 05/28/2024 Overview (05/28/2024): FHx: - CCT: 577/551 Gonio: OD IV, OS III Tmax: 25 per pt Sx: ceiol OU, ? Laser PI or SLT per documentation Gtt: cosopt, latanoprost Intolerances: brimonidine - injection Ocular Hx: narrow angles Assessment & Plan (05/28/2024 9:23 PM DETENTION WORKER): New pt referred by Dr. Bargg for poag evaluation Intraocular pressure (IOP) elevated [...]
--- OUTSIDE RECORDS SUMMARY | 2024-10-30 15:49 | XMS_ITS | Patient Health Record ---
Author Organization [facility] Address [address] [place] [address] Care Team Providers Care Configuration Management Manager Name Role Phone Brittany FRANCE, Prince Primary Care Provider Unavailab cristiane ROBISON MD, DOROTHEA Unavailable Reason For Referral No Information Problems Problem Type SNOMED Code ICD Code Onset Dates Problem Status W/U Status Risk Notes Problem Personal history of colonic polyps (Z86.010) Active confirmed Plan Of Treatment Pending Test Test Name Order Date Colonoscopy 10/24/2018 Insurance Providers Payer Name Payer Address Payer Phone Subscriber Number Group Number Insured Name Patient Relationship to Insured Coverage Start Date Coverage End Date Medicare-M O Medicare [address] [address] [place], [place] [id number] Cameron Hutchinson Self - patient is the insured [facility] [address] [place], [place] [id number] Cameron Hutchinson Self - patient is the insured
--- OUTSIDE RECORDS SUMMARY | 2024-10-30 15:49 | XMS_ITS | Clinical Summary ---
Author Organization [facility] Kayode villagomez [place] Address [address] [place] [address] Care Team Providers Care Disability Hearing Officer Name Role Phone Prince Soto MD Primary [...] Encounters Date Type Department Care Team Description 10/29/2024 External Device Data [facility]STRA[facility] Provider, Abstract 10/29/2024 External Device Data [facility] ABSTRACTION Provider, Abstract 10/07/2024 External Device Data [facility] ABSTRACTION Provider, Abstract 10/02/2024 External Device Data [facility] ABSTRACTION Provider, Abstract 10/01/2024 External Device Data [facility] ABSTRACTION Provider, Abstract [...] 11:40 AM CDT Height 170.2 cm (5' 7) 01/10/2022 3:30 PM CDT Body Mass Index 26.16 01/10/2022 3:30 PM CDT Plan of Treatment Upcoming Encounters Date Type Department Care Team (Late st Contact Info) Description 01/15/2025 10:00 AM CDT Office Visit [facility] Oncology and Hematology - Yusef [address] [place] [address] Yves Balderas MD [address] [place] [address] Health Maintenance Due Date Last [...] 2022 INFLUENZA VACCINE (#1) 2023 02/11/2018 DIABETES ANNUAL RETINAL EXAM 07/03/2024, 06/01/2021, 06/01/2021, Additional history exists DIABETES HBA1C Q 6 MONTHS 09/08/20242023, 10/18/2023, 05/16/2023, Additional history exists COLORECTAL SCREENING Discontinued 01/22/2019 Colorectal Cancer Screening Discontinued FIT-DNA Q 3 years Discontinued FIT/FOBT Q 1 year Discontinued Flex Sig/CT Colonography Q 5 years Discontinued Insurance MEDICARE PART A AND B BC TRADITIONAL AETNA CHOICE POS II Care Teams Disability Hearing Officer Relationship Specialty Start Date End Date Prince Soto MD [address] [place] [address] PCP - General Internal Medicine 01/14/20
--- OUTSIDE RECORDS SUMMARY | 2024-10-30 15:49 | XMS_ITS | Encounter Summary ---
Author Organization [facility] Address [address] [place] [address] Care Team Providers Care Supervisor Coke Handling Name Role Phone Prince Soto MD Primary Care Provider + Encounter Details Date Type Department Care Team (Late st Contact Info) Description 10/29/2024 External Device Data [facility] ABSTRACTION Provider, Abstract NO ADDRESS ON FILE Social History Tobacco Use Types Packs/Day Years Used Date Smoking Tobacco: Former Cigarettes 1 20 0 01/15/1985 - 01/15/2005 Smokeless Tobacco: Never Alcohol Use Standard Drinks/Week Comments Yes 2 (1 standard drink = 0.6 oz pur e alcohol) DAILY Comments No Sex and Gender Information Value Date Recorded Sex Assigned at Not on file Legal Sex Female 1:37 PM CDT Gender Identity Not on file Sexual Orientation Not on file documented as of this encounter Plan of Treatment Upcoming Encounters Date Type Department Care Team (Late st Contact Info) Description 01/15/2025 10:00 AM CDT Office Visit [facility] Oncology and Hematology - Yusef [address] [facility] [address] [place] [address] Yves Balderas MD [address] [facility] [address] documented as of this encounter Visit Diagnoses Not on filedocumented in this encounter Care Teams Supervisor Coke Handling Relationship Specialty Start Date End Date Prince Soto MD [address] [address] PCP - General Internal Medicine 01/14/20 documented as of this encounter
--- OUTSIDE RECORDS SUMMARY | 2024-10-30 15:49 | XMS_ITS | Encounter Summary ---
Author Organization [facility] Address [address] [place] [address] Care Team Providers Care Procedure Tech Name Role Phone Prince Soto MD Primary [...] Description 01/15/2025 10:00 AM CDT Office Visit [facility] Oncology and Hematology - Yusef [address] [facility] [address] [place] [address] Yves Balderas MD [address] [facility] [address] [place] [address] documented as of this encounter Visit Diagnoses Not on filedocumented in this encounter Care Teams Procedure Tech Relationship Specialty Start Date End Date Prince Soto MD [address] [place] [address] PCP - General Internal Medicine 01/14/20 documented as of this encounter
--- OUTSIDE RECORDS SUMMARY | 2024-10-30 15:49 | XMS_ITS | Clinical Summary ---
Author Organization [facility] Address [address] [place] [address] Care Team Providers Care Regional Refrigerated Cdl Truck Driver Name Role Phone Prince Soto MD Primary Care Provider [phone] Social History Tobacco Use Types Packs/Day Years [...] topic Meningococcal Vaccine Aged Out No maia jim eligible based on patient's age to complete this topic RSV Immunizations Under 20 Months Aged Out No longer eligible based on patient's age to complete this topic Insurance MEDICARE [employer] [place] [id number] Care Teams Regional Refrigerated Cdl Truck Driver Relationship Specialty Start Date End Date Prince Soto MD [address] [place] [address] PCP - General INTERNAL MEDICINE 01/12/21
--- OUTSIDE RECORDS SUMMARY | 2024-10-30 15:49 | XMS_ITS | Clinical Summary ---
Author Organization [facility] Address [address] [place] [address] Care Team Providers Care Software Design Engineer Name Role Phone Prince Soto MD Primary Care Provider [phone] Emanuel Alvarado MD, Hung Unavailable [phone] Moy Silverio MD Unavailable Allergies No known [...] angles Assessment & Plan (05/28/2024 9:23 PM RESEARCH MANAGER): New pt referred by Dr. Bragg for [...] Description 10/08/2024 11:15 AM CDT Office Visit [facility] Cardiology [address] [place] [address] Kb Kaplan MD Pericardial effusion (Primary Dx); Diastolic dysfunction; Hypertension associated with diabetes (HCC); Lipid screening 09/17/2024 Telephone [facility] [address] [place] [address] Jeannette Napier MD Medical Records Request from Last 3 Months Immunizations Immunization Administration [...] on file Legal Sex Female 1:56 AM RESEARCH MANAGER Gender Identity Not on file Sexual Orientation [...] 10/08/2024 11:09 AM CDT Plan of Treatment Health Maintenance [...] exists Fall Risk Assessment 02/05/2021 02/06/2020, 11/24/19 Influenza Vaccine (Season Ended) 2025 02/11/2018, 02/28/2017, 01/12/2017, Additional history exists Dilated Eye Exam 05/28/2025 05/28/2024 Lipid Panel 10/08/2025 10/08/2024, 12/12, 09/21/2021, Additional history exists Colon Cancer Screening-CT Colonography Discontinued 10/30/2013 Colon Cancer Screening-Colonoscopy Discontinued 10/30/2013 Colon Cancer Screening-DNA Stool Discontinued 10/31/19 14 Colon Cancer Screening-FIT Discontinued 10/30/2013 Colon Cancer Screening-FOBT Discontinued 10/30/2013 Colon Cancer Screening-Sigmoidoscopy Discontinued 10/30/2013 Colorectal Cancer Screening Discontinued Pneumococcal vaccine 65+ Completed 017, 02/25/2016, 02/21/2013 Breast Cancer Screening-Mammogram Discontinued 024, 04/03/2022 Medical Devices Implanted Type Area Ocean Rescue Lieutenant Device Identifier Shelf Expiration Date Model / Serial / Lot Matrix Tissue Strattice Porcine Dermis L8 Cm X W6 Cm Reconstructive Sterile - [id number] Implanted:Qty: 1 on 07/25/2017 by Uli Rousseau MD at [facility] [employer] 12/11/2018 [id number] / / [id number] Procedures Procedure Name Priority Date/Time Associated Diagnosis Comments POCT LIPID PANEL Routine 10/08/2024 11:0 4 AM CDT Lipid screening EGFR Routine 07/28/2017 5:51 AM CDT HEMOGLOBIN A1C Routine 07/17/2017 1:45 PM RESEARCH MANAGER Pre-op evaluation COLONOSCOPY REPORT 10/30/2013 from Last [...] AM CDT) eGFR 66 mL/min/1.7 3 m2 [facility] Comment: Interpretive Data Reference Interval Normal >/= 90 mL/min/1.73m2 Mildly decreased* 60 - 89 mL/min/1.73m2 Mildly to moderately decreased 45 - 59 mL/min/1.73m2 Moderately to severely decreased 30 - 44 mL/min/1.73m2 Severely decreased 15 - 29 mL/min/1.73m2 Kidney Failure < 15 mL/min/1.73m2 *Relative to young adult level If -Slovenian multiply value by 1.16. Estimated glomerular filtration [...] AM CDT 07/28/2017 6:15 AM CDT Narrative [facility] - 07/28/2017 6:44 AM CDT Nani Brown NP LAB BLOOD ORDERABLES Fin al Result [facility] [address] Department [place] [address] * Hemoglobin A1c (07/17/2017 1:45 PM RESEARCH MANAGER) Hgb A1C 5.3 4.0 - 5.6 % [facility] Estimated Average Glucose 105 mg/dL [facility] Comment: The ADA recommends reporting an estimated Average Glucose (eAG) with all Hemoglobin A1c results using the equation derived from a study of 507 normal and diabetic adults. Minority populations were underrepresented and children were not included. (Diabetes Care 31:6434-3561, 2008). The eAG is not equivalent to a fasting glucose. Blood specimen (specimen) 07/17/2017 1:45 PM RESEARCH MANAGER 07/17/2017 1:45 PM RESEARCH MANAGER Narrative [facility] - 07/17/2017 2:13 PM RESEARCH MANAGER Nicole Morales NP LAB BLOOD ORDERABLES Final Result [facility] [address] Department [place] [address] * COLONOSCOPY REPORT (10/30/2013) Anatomical Region Laterality Modality Other Narrative 10/30/2013 Ordered by an unspecified provider. Historical Provider GI PROCEDURE ORDERABLES F inal Result from Last 3 Months or Most Recently Relevant to Health Maintenance Insurance MEDICARE [facility] [place] [address] MEDICARE [facility] HMO/O Address: [facility] [id number] [place] [address] [facility] MEDICARE MEDICARE [facility] Advance Directives For more information, please contact: [phone] * Full Code (Latest Code Status on File) Date Activated Date Inactivated Comments 07/25/2017 2:45 PM 07/30/2017 4:19 PM Care Teams Software Design Engineer Relationship Specialty Start Date End Date Prince Soto MD [address] [place] [address] PCP - General 12/05/11 Hung Castellanos Jr., MD [address] [place] [address] Medical Oncologist/Buffing Wheel Operator Medical Oncology 11/27/19 Moy Silverio MD [facility] [place] [place] [address] Consulting Physician Rheumatology 10/05/22
== END 2024-10-30 15:46 | disposition home or self-care (01) ==
PROVIDERS: PCP Internal Medicine; Visit Provider Internal Medicine
DX: E04.2 Nontoxic multinodular goiter (principal)
CPT/HCPCS: 76536

== ENCOUNTER 2024-11-28 07:56 | Outpatient (CLI) | payer MEDICARE, OTHER, SELFPAY ==
--- OUTSIDE RECORDS SUMMARY | 2024-11-28 08:00 | XMS_ITS ---
Author Organization [facility] Address [address] [place] [address] Care Team Providers Care Truck Guard Name Role Phone Prince Soto MD Primary Care Provider [phone] Emanuel Alvarado MD, Hung Unavailable [phone] Moy Silverio MD Unavailable [phone] Active Problems Problem Noted Date Diagnosed Date Primary open angle glaucoma (POAG) of both eyes, mild stage 05/28/2024 Overview (05/28/2024): FHx: - CCT: 577/551 Gonio: OD IV, OS III Tmax: 25 per pt Sx: ceiol OU, ? Laser PI or SLT per documentation Gtt: cosopt, latanoprost Intolerances: brimonidine - injection Ocular Hx: narrow angles Assessment & Plan (05/28/2024 9:[address] DESIGN ENGINEER): New pt referred by Dr. Bragg for [...]
--- OUTSIDE RECORDS SUMMARY | 2024-11-28 08:00 | XMS_ITS | Referral Summary ---
Author Organization [facility] Address [address] [place] [address] Care Team Providers Care Inoculator Name Role Phone Prince Soto MD Primary Care Provider [phone] Emanuel Alvarado MD, Hung Unavailable [phone] Moy Silverio MD Unavailable [phone] Encounters Date Type Department Care Team Description 10/08/2024 11:15 AM CDT Office Visit [facility] Medical Group Cardiology [address] [place] [address] Kb Kaplan MD Pericardial effusion (Primary Dx); Diastolic dysfunction; Hypertension associated with diabetes (HCC); Lipid screening 09/17/2024 Telephone [facility] Ophthalmology [address] [place] [address] Jeannette Napier MD Medical Records [...] angles Assessment & Plan (05/28/2024 9:23 PM ADMINISTRATIVE HEARING OFFICER): New pt referred by Dr. Bragg for [...] on file Legal Sex Female 1:56 AM ADMINISTRATIVE HEARING OFFICER Gender Identity Not on file Sexual Orientation [...] on file Medical Devices Implanted Type Area Edge Grinder Machine Device Identifier Shelf Expiration Date Model / Serial / Lot Matrix Tissue Strattice Porcine Dermis L8 Cm X W6 Cm Reconstructive Sterile - [id number] Implanted:Qty: 1 on 07/25/2017 by Uli Rousseau MD at [facility] [employer] 12/11/2018 [id number] / / [id number] Procedures Procedure Name Priority Date/Time Associated Diagnosis Comments POCT LIPID PANEL Routine 10/08/2024 11:0 4 AM CDT Lipid screening EGFR Routine 07/28/2017 5:51 AM CDT HEMOGLOBIN A1C Routine 07/17/2017 1:45 PM ADMINISTRATIVE HEARING OFFICER Pre-op evaluation COLONOSCOPY REPORT 10/30/2013 from Last [...] AM CDT) eGFR 66 mL/min/1.7 3 m2 [facility] Comment: Interpretive Data Reference Interval Normal >/= 90 mL/min/1.73m2 Mildly decreased* 60 - 89 mL/min/1.73m2 Mildly to moderately decreased 45 - 59 mL/min/1.73m2 Moderately to severely decreased 30 - 44 mL/min/1.73m2 Severely decreased 15 - 29 mL/min/1.73m2 Kidney Failure < 15 mL/min/1.73m2 *Relative to young adult level If -Moldovan multiply value by 1.16. Estimated glomerular filtration [...] AM CDT 07/28/2017 6:15 AM CDT Narrative [facility] - 07/28/2017 6:44 AM CDT Nani Brown NP LAB BLOOD ORDERABLES Fin al Result [facility] [address] [place] [address] * Hemoglobin A1c (07/17/2017 1:45 PM ADMINISTRATIVE HEARING OFFICER) Hgb A1C 5.3 4.0 - 5.6 % [facility] Estimated Average Glucose 105 mg/dL [facility] Comment: The ADA recommends reporting an estimated Average Glucose (eAG) with all Hemoglobin A1c results using the equation derived from a study of 507 normal and diabetic adults. Minority populations were underrepresented and children were not included. (Diabetes Care 31:8509-8559, 2008). The eAG is not equivalent to a fasting glucose. Blood specimen (specimen) 07/17/2017 1:45 PM ADMINISTRATIVE HEARING OFFICER 07/17/2017 1:45 PM ADMINISTRATIVE HEARING OFFICER Narrative [facility] - 07/17/2017 2:13 PM ADMINISTRATIVE HEARING OFFICER Nicole Morales NP LAB BLOOD ORDERABLES Final Result [facility] [address] Department [place] [address] * COLONOSCOPY REPORT (10/30/2013) Anatomical Region Laterality Modality Other Narrative 10/30/2013 Ordered by an unspecified provider. Historical Provider GI PROCEDURE ORDERABLES F inal Result from Last 3 Months or Most Recently Relevant to Health Maintenance Insurance MEDICARE [facility] [place] [address] [facility]ICARE [facility]ARE O MEDICARE MEDICARE [facility] Advance Directives For more information, please contact: [phone] * Full Code (Latest Code Status on File) Date Activated Date Inactivated Comments 07/25/2017 2:45 PM 07/30/2017 4:19 PM Care Teams Inoculator Relationship Specialty Start Date End Date Prince Soto MD [address] [place] [address] PCP - General 12/05/11 Hung Castellanos Jr., MD [address] [place] [address] Medical Oncologist/Deputy Building Guard Medical Oncology 11/27/19 Moy Silverio MD [address] [place] [address] Consulting Physician Rheumatology 10/05/22
--- OUTSIDE RECORDS SUMMARY | 2024-11-28 08:01 | XMS_ITS | Encounter Summary ---
Author Organization [facility] Address [address] [place] [address] Care Team Providers Care Oxidation Engineer Name Role Phone Prince Soto MD Primary Care Provider + Encounter Details Date Type Department Care Team (Late st Contact Info) Description 11/26/2024 External Device Data STL ABSTRACTION Provider, Abstract [...] Description 01/15/2025 10:00 AM CDT Office Visit [facility] Oncology and Hematology - [address] [facility] [address] [place] [address] Yves Balderas MD [address] [facility] [address] [place] [address] documented as of this encounter Visit Diagnoses Not on filedocumented in this encounter Care Teams Oxidation Engineer Relationship Specialty Start Date End Date Prince Soto MD [address] [place] [address] PCP - General Internal Medicine 01/14/20 documented as of this encounter
--- OUTSIDE RECORDS SUMMARY | 2024-11-28 08:01 | XMS_ITS | Patient Health Record ---
Author Organization [facility] Address [address] [facility] [address] [place] [address] Care Team Providers Care Seafood Preparer Name Role Phone Brittany FR[place], Prince Primary Care Provider Unavailab cristiane ROBISON MD, DOROTHEA Unavailable Reason For Referral No Information Problems Problem Type SNOMED Code ICD Code Onset Dates Problem Status W/U Status Risk Notes Problem History of polyp of colon (situation) (457867111) Personal history of colonic polyps (Z86.010) Active confirmed Plan Of Treatment Pending Test Test Name Order Date Colonoscopy 10/24/2018 Insurance Providers Payer Name Payer Address Payer Phone Subscriber Number Group Number Insured Name Patient Relationship to Insured Coverage Start Date Coverage End Date Medicare-M O Medicare [address] [address] [place], [place] [id number] Cameron Hutchinson Self - patient is the insured [facility] [address] [place], [place] [id number] Cameron Hutchinson Self - patient is the insured
--- OUTSIDE RECORDS SUMMARY | 2024-11-28 08:01 | XMS_ITS | Clinical Summary ---
Author Organization [facility] Address [address] [place] [address] Care Team Providers Care Sweat Box Attendant Name Role Phone Prince Soto MD Primary [...] Encounters Date Type Department Care Team Description 11/26/2024 External Device Data STL ABSTRACTION Provider, Abstract 11/26/2024 External Device Data STL ABSTRACTION Provider, [...] Description 01/15/2025 10:00 AM CDT Office Visit [facility] Oncology and Hematology - Yusef [address] [place] [address] Yves Balderas MD [address] [facility] [address] [place] [address] Health Maintenance Due Date Last Done Comments DIABETES ANNUAL FOOT EXAM 1965 DIABETES MICROALBUMIN ANNUAL SCREEN 1965 LDL CHOLESTEROL ANNUAL 1965 DTAP/TDAP/TD VACCINES (1 - Tdap) 1966 PNEUMOCOCCAL VACCINE 50+ YEA RS (1 of 2 - PCV) 1966 02/11/2017 ZOSTER VACCINE (2 of 3) 04/08/2017 02/11/2017 OSTEOPOROSIS SCREENING 11/17/2019 11/16/2014 RSV VACCINE (60+ or ) (1 - 1-dose 75+ series) 2022 DIABETES ANNUAL RETINAL EXAM 07/03/2024, 06/01/2021, 06/01/2021, Additional history exists DIABETES HBA1C Q 6 MONTHS 09/08/20242023, 10/18/2023, 05/16/2023, Additional history exists INFLUENZA VACCINE (#1) 2024 02/11/2018 COLORECTAL SCREENING Discontinued 01/22/2019 Colorectal Cancer Screening Discontinued FIT-DNA Q 3 years Discontinued FIT/FOBT Q 1 year Discontinued Flex Sig/CT Colonography Q 5 years Discontinued Insurance MEDICARE PART A AND B [facility] TRADITIONAL AETNA CHOICE POS II Care Teams Sweat Box Attendant Relationship Specialty Start Date End Date Prince Soto MD [address] [place] [address] PCP - General Internal Medicine 01/14/20
--- OUTSIDE RECORDS SUMMARY | 2024-11-28 08:01 | XMS_ITS | Clinical Summary ---
Author Organization [facility] Address [address] [place] [address] Care Team Providers Care Supervisor Quilting Name Role Phone Prince Soto MD Primary Care Provider [phone] Emanuel Alvarado MD, Hung Unavailable [phone] Moy Silverio MD Unavailable [phone] Allergies No known active allergies Medications atorvastatin [...] angles Assessment & Plan (05/28/2024 9:23 PM SHAKE SAWYER): New pt referred by Dr. Bragg for [...] Description 10/08/2024 11:15 AM CDT Office Visit [facility] Medical Group Cardiology [address] [place] [address] Kb Kaplan MD Pericardial effusion (Primary Dx); Diastolic dysfunction; Hypertension associated with diabetes (HCC); Lipid screening 09/17/[address] [facility] Ophthalmology [address] [place] [address] Jeannette Napier MD Medical Records Request from [...] on file Legal Sex Female 1:56 AM SHAKE SAWYER Gender Identity Not on file Sexual Orientation [...] Fall Risk Assessment 02/05/2021 02/06/2020, 11/24/19 20 Influenza Vaccine (#1) 2025 8, 02/28/2017, 01/12/2017, Additional history exists Dilated Eye [...] 024, 04/03/2022 Medical Devices Implanted Type Area Pm Technician Device Identifier Shelf Expiration Date Model / Serial / Lot Matrix Tissue Strattice Porcine Dermis L8 Cm X W6 Cm Reconstructive Sterile - [id number] Implanted:Qty: 1 on 07/25/2017 by Uli Rousseau MD at [facility] [employer] 12/11/2018 [id number] / / [id number] Procedures Procedure Name Priority Date/Time Associated Diagnosis Comments POCT LIPID PANEL Routine 10/08/2024 11:0 4 AM CDT Lipid screening EGFR Routine 07/28/2017 5:51 AM CDT HEMOGLOBIN A1C Routine 07/17/2017 1:45 PM SHAKE SAWYER Pre-op evaluation COLONOSCOPY REPORT 10/30/2013 from Last [...] AM CDT) eGFR 66 mL/min/1.7 3 m2 [facility] Comment: Interpretive Data Reference Interval Normal >/= 90 mL/min/1.73m2 Mildly decreased* 60 - 89 mL/min/1.73m2 Mildly to moderately decreased 45 - 59 mL/min/1.73m2 Moderately to severely decreased 30 - 44 mL/min/1.73m2 Severely decreased 15 - 29 mL/min/1.73m2 Kidney Failure < 15 mL/min/1.73m2 *Relative to young adult level If -Cambodian multiply value by 1.16. Estimated glomerular filtration [...] AM CDT 07/28/2017 6:15 AM CDT Narrative [facility] - 07/28/2017 6:44 AM CDT Nani Brown NP LAB BLOOD ORDERABLES Fin al Result [facility] [address] Department [place] [address] * Hemoglobin A1c (07/17/2017 1:45 PM SHAKE SAWYER) Hgb A1C 5.3 4.0 - 5.6 % [facility] Estimated Average Glucose 105 mg/dL [facility] Comment: The ADA recommends reporting an estimated Average Glucose (eAG) with all Hemoglobin A1c results using the equation derived from a study of 507 normal and diabetic adults. Minority populations were underrepresented and children were not included. (Diabetes Care 31:3946-5899, 2008). The eAG is not equivalent to a fasting glucose. Blood specimen (specimen) 07/17/2017 1:45 PM SHAKE SAWYER 07/17/2017 1:45 PM SHAKE SAWYER Narrative [facility] - 07/17/2017 2:13 PM SHAKE SAWYER Nicole Morales NP LAB BLOOD ORDERABLES Final Result [facility] [address] Department [place] [address] * COLONOSCOPY REPORT (10/30/2013) Anatomical Region Laterality Modality Other Narrative 10/30/2013 Ordered by an unspecified provider. Historical Provider GI PROCEDURE ORDERABLES F inal Result from Last 3 Months or Most Recently Relevant to Health Maintenance Insurance MEDICARE [facility] [place] [address] MEDICARE [facility] MEDICARE MEDICARE [facility] Advance Directives For more information, please contact: [phone] * Full Code (Latest Code Status on File) Date Activated Date Inactivated Comments 07/25/2017 2:45 PM 07/30/2017 4:19 PM Care Teams Supervisor Quilting Relationship Specialty Start Date End Date Prince Soto MD [address] [place] [address] PCP - General 12/05/11 Hung Castellanos Jr., MD [address] [place] [address] Medical Oncologist/Account Liaison Hospice Medical Oncology 11/27/19 Moy Silverio MD [facility] [place] [address] Consulting Physician Rheumatology 10/05/22
--- OUTSIDE RECORDS SUMMARY | 2024-11-28 08:01 | XMS_ITS | Clinical Summary ---
Author Organization [facility] Address [address] [place] [address] Care Team Providers Care Bi Consultant Name Role Phone Prince Soto MD Primary Care Provider [phone] Social History Tobacco Use Types Packs/Day Years [...] to complete this topic Insurance MEDICARE [employer] [place] [id number] Care Teams Bi Consultant Relationship Specialty Start Date End Date Prince Soto MD [address] [place] [address] PCP - General INTERNAL MEDICINE 01/12/21
--- OUTSIDE RECORDS SUMMARY | 2024-11-28 08:01 | XMS_ITS | Encounter Summary ---
Author Organization [facility] Address [address] [place] [address] Care Team Providers Care Pamphlet Distributor Name Role Phone Prince Soto MD Primary [...] Description 01/15/2025 10:00 AM CDT Office Visit [facility] Oncology and Hematology - Yusef [address] [facility] [address] [place] [address] Yves Balderas MD [address] [facility] [address] [place] [address] documented as of this encounter Visit Diagnoses Not on filedocumented in this encounter Care Teams Pamphlet Distributor Relationship Specialty Start Date End Date Prince Soto MD [address] [place] [address] PCP - General Internal Medicine 01/14/20 documented as of this encounter
== END 2024-11-28 07:57 | disposition home or self-care (01) ==
LOC: ANHAUDASC 07:56
PROVIDERS: PCP Internal Medicine; Visit Provider Otolaryngology
DX: H90.3 Sensorineural hearing loss, bilateral (principal); Z97.4 Presence of external hearing-aid
CPT/HCPCS: 92557; 92567

== ENCOUNTER 2024-12-18 14:00 | Outpatient (RCR) | payer SELFPAY | END 2025-03-05 23:59 | disposition home or self-care (01) | LOC: ANHAUDASC 14:00 | PROVIDERS: PCP Internal Medicine; Visit Provider Internal Medicine | DX: Z46.1 Encounter for fitting and adjustment of hearing aid (principal) | CPT/HCPCS: 99199; V5014 ==

== ENCOUNTER 2025-02-23 13:27 | Outpatient (CLI) | payer MEDICARE, OTHER, SELFPAY ==
--- NOTE | ~2025-02-23 | XR_ITS ---
EXAMINATION: XR chest 2V, 02/23/2025 13:54 CDT HISTORY: malignant neoplasm of upper lobe of left lung, yearly check COMPARISON: Comparison 01/09/2024. Technique: 2 views obtained. Findings: There is a focus of abnormal density in the left upper lobe could flow in the hilum probably consistent with the patient's known neoplasm, the remaining lungs are clear. No pneumothorax. Heart is normal size. Mediastinal and hilar contours are within normal limits. Bony thorax no acute abnormality. Impression: Abnormal density in the left lung apex which accounting for differences in technique appears relatively unchanged compared to the previous study and may reflect treatment-related changes. If there is concern for residual or recurrent neoplasm CT is recommended Reviewed, dictated and finalized at location P. Impression: Abnormal density in the left lung apex which accounting for differences in tech nique appears relatively unchanged compared to the previous study and may refle ct treatment-related changes. If there is concern for residual or recurrent austin plasm CT is recommended
== END 2025-02-23 13:28 | disposition home or self-care (01) ==
PROVIDERS: PCP Internal Medicine Hematology & Oncology; Visit Provider Internal Medicine Hematology & Oncology
DX: C34.12 Malignant neoplasm of upper lobe, left bronchus or lung (principal)
CPT/HCPCS: 71046

== ENCOUNTER 2025-02-26 13:30 | Outpatient (CLI) | payer MEDICARE, OTHER, SELFPAY ==
[2025-02-26 13:43] LABS: Hematocrit 41.3 % (37.0-47.0); Hemoglobin 13.0 g/dL (12.0-15.0); Immature Granulocyte Percent A 0.1 % (0-0.5); Lymphocytes Absolute Auto 2.16 K/mm3 (0.9-3.2); Mean Corpuscular HGB Conc 31.5 g/dl (32-36); Mean Corpuscular Hemoglobin 30.4 pg (26-34); Mean Corpuscular Volume 96.5 fl (80-100); Nucleated Red Blood Cells Absolute Auto 0.000 K/mm3 (0.0-0.012); Nucleated Red Blood Cells Perc 0.0 % (0.0-0.2); Platelet Count Result 208 k/mm3 (150-375); Red Blood Count 4.28 M/mm3 (4.2-5.4); White Blood Count 7.3 K/mm3 (4.5-10.0)
[2025-02-26 13:46] LABS: Blood Urea Nitrogen 25 mg/dL (8-26); Carbon Dioxide 22 mmol/L (22-30); Chloride 105 mmol/L (98-109); Estimated Glomerular Filt Rate 29; Glucose 99 mg/dL (70-105); Ionized Calcium (POC) 1.33 mmol/L (1.11-1.31); Potassium 5.5 mmol/L (3.5-4.9); Sodium 136 mmol/L (138-146)
--- OUTSIDE RECORDS SUMMARY | 2025-02-26 14:00 | XMS_ITS | Encounter Summary ---
Author Organization [facility] [employer] [facility] Address [address] [place] [address] Care Team Providers Care Mud Analysis Well Logging Captain Name Role Phone Prince Soto MD Primary Care Provider + Reason for Visit * Reason Comments Cancer Follow Up Encounter Details Date Type Department Care Team (Late st Contact Info) Description 02/26/2025 2:00 PM CDT Office Visit [facility] Oncology and Hematology - [place] [address] [place] [address] [address] [place] [address] Yves Balderas MD [address] [facility] [address] [place] [address] Malignant neoplasm of upper lobe of left lung (Primary Dx) Social History Tobacco Use Types Packs/Day Years [...] on file documented as of this encounter Last Filed Vital Signs Vital Sign Reading Time Taken Comments Blood Pressure 135/76 02/26/2025 1:48 PM CDT Pulse 65 02/26/2025 1:48 PM CDT Temperature 36.2 C (97.2 F) 02/26/2025 1:48 PM CDT Respiratory Rate 15 02/26/2025 1:48 PM CDT Oxygen Saturation 91% 02/26/2025 1:48 PM CDT Inhaled Oxygen Concentration - - Weight 76 kg (167 lb 9.6 oz) 02/26/2025 1:48 PM CDT Height - - Body Mass Index 26.25 01/10/2022 3:30 PM CDT documented in this encounter Progress Notes * Yves Balderas MD - 02/26/2025 2:24 PM CDT HEMATOLOGY / ONCOLOGY PROGRESS NOTE Patient Identification: Name: Cameron Hutchinson Age: 79 y.o. Sex: female : 1945 DIAGNOSIS History of non-small cell lung cancer, undifferentiated stage IIIa disease diagnosed June 03, 2012 CURRENT TREATMENT Surveillance TREATMENT HISTORY Status post chemotherapy with cisplatin and TOP TILE DECORATOR-16 along with radiation therapy treatment. Patient was not a surgical candidate. SUBJECTIVE Patient came to the office for follow-up visit. She denies any tiredness and fatigue. Denies any chest pain or shortness of breath. She has been having some watery stool and going to have colonoscopynext year. Denies any other new complaints. Review of system Constitutional: denies fevers, sweats, denies any tiredness and fatigue, weight and appetite stable HEENT: denies sinus congestion, hearing or vision problems Respiratory: denies cough, dyspnea, wheeze Cardiovascular: denies chest pain, exertional chest pressure/discomfort, nausea, syncope, denies any shortness of breath GI: denies constipation, diarrhea, dsyphagia, reflux symptoms, vomiting, melena : denies dysuria, frequency, incontinence, urgency Integumentary system: no lymphadenopathy, sweats, flushing Musculoskeletal: denies: myalgia, arthralgia Neurological: denies blurry or disturbed vision, numbness/weakness, dizziness Skin: No lumps, bumps or rashes. 12 point review of system was reviewed Objective: Vital signs in last 24 hours: As per nursing note Exam: General appearance: alert, cooperative, no distress, appears stated age Head: normocephalic, without obvious abnormality, atraumatic Eyes: conjunctivae/corneas clear, EOM's intact Ears: normal external ear canals AU Nose: Nares normal. Septum midline. Mucosa normal. No drainage or sinus tenderness Throat: Lips, mucosa, and tongue normal. Teeth and gums normal Neck: supple, symmetrical, trachea midline. Lungs: clear to auscultation bilaterally Heart: regular rate and rhythm, S1, S2 normal, no murmur, click, rub or gallop Abdomen: soft, non-tender. Bowel sounds normal. No masses, No organomegaly Extremities: extremities normal, atraumatic, no cyanosis or edema Skin: Skin color, texture, turgor normal. No rashes or lesions Lymph nodes: No lymphadenopathy Neuro: No obvious focal deficit Exam as above PATH LABS Labs from May 15 showed WBC 5.9 hemoglobin 13.6 platelet 232,000 total bilirubin 0.5 calcium 10.1 creatinine 1.1 Labs from December 02 showed WBC 7.9 hemoglobin 13.3 platelet 194,000 creatinine 1.7 Labs from May 24 showed normal CBC elevated potassium of 5.2 and creatinine of 1.5 Labs from January 09 showed WBC 5.5 hemoglobin 14.5 platelet 199,000 creatinine 1.3 clean Labs from January 09 showed hemoglobin 14.6 WBC 7.7 platelet 1 89,000 creatinine 1.5 GFR 34 sodium 131 potassium 5.5 Assessment: Plan: Patient Active Problem List Diagnosis Date Noted History of lung cancer 01/16/2020 Non-small cell lung cancer (undifferentiated) carcinoma of the left lung stage IIIA disease diagnosed June 03, 2012. Patient received combination chemotherapy with cisplatin and TOP TILE DECORATOR-16 along with radiation therapy treatment. She was found not to be a surgical candidate by Dr. Calhoun. Patient is clinically remains asymptomatic. Chest x-ray was performed on February 23, 2025 showed abnormal density in the left lung apex likely treatment related changes. I will see her back in 1 yearand repeat chest x-ray will be done. She will contact us if she has any new complaints. Chronic kidney stage III disease. Patient will continue to follow-up with primary care physician. Diarrhea and IBS. She is going to have colonoscopy in June 2025. Follow-up in 1 year 02/26/2025 Yves Balderas MD documented in this encounter Plan of Treatment Upcoming Encounters Date Type Department Care Team (Late st Contact Info) Description 01/06/2026 2:50 PM CDT Office Visit [facility] Oncology and Hematology [facility] [address] [facility] [address] [place] [phone] Yves Balderas MD [address] [facility] [address] [place] [address] Scheduled Orders Name Type Priority Associated Diagnoses Orde r Schedule CBC WITH DIFFERENTIAL Lab Stat Malignant neoplasm of upper lobe of left lung Expected: 02/26/2026, Expires: 05/27/2026 COMPREHENSIVE METABOLIC PANEL Lab Stat Malignant neoplasm of upper lobe of left lung Expected: 02/26/2026, Expires: 05/27/2026 XR CHEST PA AND LATERAL 2 VW Imaging Routine Malignant neoplasm of upper lobe of left lung Expected: 02/26/2026, Expires: 05/27/2026 documented as of this encounter Visit Diagnoses Diagnosis Malignant neoplasm of upper lobe of left lung- Primary documented in this encounter Care Teams Mud Analysis Well Logging Captain Relationship Specialty Start Date End Date Prince Soto MD [address] [facility] [place] [address] PCP - General Internal Medicine 01/14/20 documented as of this encounter
--- OUTSIDE RECORDS SUMMARY | 2025-02-26 15:24 | XMS_ITS | Patient Health Record ---
Author Organization [facility] Address [address] [facility] [address] [place] [address] Care Team Providers Care Plycor Operator Name Role Phone Brittayn FRANCE, Prince Primary Care Provider Unavailab cristiane ROBISON MD, DOROTHEA Unavailable Reason For Referral No Information Problems Problem Type SNOMED Code ICD Code Onset Dates Problem Status W/U Status Risk Notes Problem History of polyp of colon (situation) (741934765) Personal history of colonic polyps (Z86.010) Active confirmed Plan Of Treatment Pending Test Test Name Order Date Colonoscopy 10/24/2018 Insurance Providers Payer Name Payer Address Payer Phone Subscriber Number Group Number Insured Name Patient Relationship to Insured Coverage Start Date Coverage End Date Medicare-M O Medicare [address] [address] [place], [place] [id number] Cameron Hutchinson Self - patient is the insured [facility] [address] [place], [place] [id number] Cameron Hutchinson Self - patient is the insured
--- OUTSIDE RECORDS SUMMARY | 2025-02-26 15:24 | XMS_ITS | Clinical Summary ---
Author Organization [facility] Address [address] [place] [address] Care Team Providers Care Mechanic General Operational Test Name Role Phone Prince Soto MD Primary Care Provider [phone] Social History Tobacco Use Types Packs/Day Years [...] series) 2022 COVID-19 Vaccine (3 - season) 2025 07/20/2020, 06/16/2020 Influenza Adult (#1) 2025 02/11/2018, 01/13/20 17 Meningococcal B Vaccine Aged Out No l onger eligible based on patient's age to complete this topic Meningococcal Vaccine Aged Out No maia jim eligible based on patient's age to complete this topic RSV Immunizations Under 20 Months Aged Out No longer eligible based on patient's age to complete this topic Insurance MEDICARE [employer] Care Teams Mechanic General Operational Test Relationship Specialty Start Date End Date Prince Soto MD [address] [place] [address] PCP - General INTERNAL MEDICINE 01/12/21
--- OUTSIDE RECORDS SUMMARY | 2025-02-26 15:24 | XMS_ITS | Clinical Summary ---
Author Organization [facility] Address [address] [place] [address] Care Team Providers Care Agricultural Research Engineer Name Role Phone Prince Soto MD Primary Care Provider [phone] Emanuel Alvarado MD, Hung Unavailable [phone] Moy Silverio MD Unavailable [phone] Allergies No known active allergies Medications atorvastatin (LIPITOR) 80 mg tablet Take 1 tablet (80 mg total) by mouth nightly 8 Active cholecalcifero l (VITAMIN D-3) 1,000 unit tablet Take 1 tablet (1,000 Units total) by mouth nightly Active omega-3 fatty acids-fish oil 340-1,000 mg capsule Take 1 capsule by mouth nightly Active aspirin 81 mg tablet Take 1 tablet (81 mg total) by mouth nightly Active cyanocobalamin (Vitamin B-12) 500 mcg tabletIndicati ons:Prevention of Vitamin B12 Deficiency 3 Active ANORO ELLIPTA 62.5-25 mcg/actuation blister with device 9 Active folic acid (FOLVITE) 400 mcg tablet Take 1 tablet (400 mcg total) by mouth daily Active Glyxambi 10-5 mg tablet Take 1 tablet by mouth daily Active losartan (COZAAR) 100 mg tablet Take 1 tablet (100 mg total) by mouth daily Active latanoprost (XALATAN) 0.005 % ophthalmic solution Administer 1 drop into both eyes nightly 90 day supply is OK with 3 refills if authorized by insurance and patient prefers. 2.5 mL 11 5 Active dorzolamide-ti moloL (COSOPT) 22.3-6.8 mg/mL ophthalmic solution Administer 1 drop into both eyes 2 (two) times a day 10 mL 11 5 Active dorzolamide-ti moloL (COSOPT) 22.3-6.8 mg/mL ophthalmic solution 1 drop 2 (two) times a day 4 02/12/20 25 Discontinu ed(Reorder ) latanoprost (XALATAN) 0.005 % ophthalmic solution INSTILL 1 DROP INTO BOTH EYES AT BEDTIME DIRECTED 4 02/12/20 25 Discontinu ed(Reorder ) Active Problems Problem Noted Date Diagnosed Date Primary open angle glaucoma (POAG) of both eyes, mild stage 05/28/2024 Overview (05/28/2024): FHx: - CCT: 577/551 Gonio: OD IV, OS III Tmax: 25 per pt Sx: ceiol OU, ? Laser PI or SLT per documentation Gtt: cosopt, latanoprost Intolerances: brimonidine - injection Ocular Hx: narrow angles Assessment & Plan (02/12/2025 7:44 AM CDT): Since last visit, IOP check with local provider with IOP 30+ OD Today, OCT with concern for progressive polar thinning OD IOP excellent today on 3 classes OU Continue present management with close monitoring Plan for local IOP checks AM and PM measurements Repeat HVF 24-2 and OCT here- 6 months Assessment & Plan (05/28/2024 9:23 PM ICT SYSTEMS TEST ENGINEER): New pt referred by Dr. Bragg [...] (hypertension) 07/17/2017 Type 2 diabetes mellitus 07/17/2017 Assessment & Plan (02/12/2025 7:45 AM CDT): Local DFE Encounters Date Type Department Care Team Description 02/13/2025 Telephone [facility] Medicine Ophthalmology [address] [place] [address] Jeannette Napier MD iop check 02/11/2025 1:45 PM CDT Office Visit [facility] Medicine Ophthalmology [address] [place] [phone] Jeannette Napier MD Primary open angle glaucoma (POAG) of both eyes, mild stage (Primary Dx); Type 2 diabetes mellitus without complication, without long-term current use of insulin (HCC) 02/11/2025 1:10 PM CDT Imaging Exam [facility] Medicine Ophthalmology [address] [place] [phone] Primary open angle glaucoma (POAG) of both eyes, indeterminate stage 02/11/2025 12:50 PM CDT Imaging Exam [facility] Medicine Ophthalmology [address] [place] [phone] Primary open angle glaucoma (POAG) of both eyes, indeterminate stage 12/22/2024 Telephone [facility] Medicine Ophthalmology [facility] [place] [address] Jeannette Napier MD from Last 3 Months Immunizations Immunization Administration [...] (hypertension) 07/17/2017 Type 2 diabetes mellitus 07/17/2017 Arthritis Lung cancer (HCC) Hyperlipidemia COPD (chronic obstructive pulmonary disease) Glaucoma Family History Medical History Relation Name Comments [...] on file Legal Sex Female 1:56 AM ICT SYSTEMS TEST ENGINEER Gender Identity Not on file Sexual Orientation [...] 024, 04/03/2022 Medical Devices Implanted Type Area Waste Reclaimer Device Identifier Shelf Expiration Date Model / Serial / Lot Matrix Tissue Strattice Porcine Dermis L8 Cm X W6 Cm Reconstructive Sterile - [id number] Implanted:Qty: 1 on 07/25/2017 by Uli Rousseau MD at [facility] [employer] 12/11/2018 [id number] / / [id number] Procedures Procedure Name Priority Date/Time Associated Diagnosis Comments OCT, OPTIC NERVE - OU - BOTH EYES Routine 02/11/2025 1:27 PM CDT Primary open angle glaucoma (POAG) of both eyes, indeterminate stage TEE VISUAL FIELD - OU - BOTH EYES Routine 02/11/2025 1:27 PM CDT Primary open angle glaucoma (POAG) of both eyes, indeterminate stage POCT LIPID PANEL Routine 10/08/2024 11:0 4 AM CDT Lipid screening EGFR Routine 07/28/2017 5:51 AM CDT HEMOGLOBIN A1C Routine 07/17/2017 1:45 PM ICT SYSTEMS TEST ENGINEER Pre-op evaluation COLONOSCOPY REPORT 10/30/2013 from Last 3 Months or Most Recently Relevant to Health Maintenance Results * OCT, Optic Nerve - OU - Both Eyes (02/11/2025 1:27 PM CDT) RNFL OS 73 micrometers CONTINUUM RNFL OD 67 micrometers CONTINUUM Anatomical Region Laterality Modality Head Other Narrative 02/11/2025 2:58 PM CDT Right Eye Reliability was good. Temporal progression was stable. Temporal thickness was normal. Superior progression was worsened. Superior thickness was showing abnormal thinning. Nasal progression was stable. Nasal thickness was normal. Inferior progression was worsened. Inferior thickness was showing abnormal thinning. Average RNFL thickness 67 micrometers. Left Eye Reliability was good. Temporal progression was stable. Temporal thickness was normal. Superior progression was stable. Superior thickness was normal. Nasal thickness was normal. Inferior progression was stable. Inferior thickness was normal. Average RNFL thickness 73 micrometers. Notes OD: Polar thinning, progressed from prior OS: Normal RNFL thickness Jeannette Napier MD OPH TOMOGRAPHY Final R esult * Tee Visual Field - OU - Both Eyes (02/11/2025 1:27 PM CDT) Pattern Deviation OS 2.23 dB CONTINUUM Pattern Deviation OD 4.56 dB CONTINUUM Mean Deviation OS -2.15 dB CONTINUUM Mean Deviation OD -4.76 dB CONTINUUM Anatomical Region Laterality Modality Head Other Narrative 02/11/2025 2:59 PM CDT Right Eye Fixation was borderline. Cooperation was good. Reliability was poor. Foveal threshold was normal. Mean Deviation was -4.76 dB. Pattern Deviation was 4.56 dB. Left Eye Fixation was good. Cooperation was good. Reliability was good. Foveal threshold was normal. Mean Deviation was -2.15 dB. Pattern Deviation was 2.23 dB. Notes OD watered throughout test, pt sts this has been an ongoing issue. OD: ? Superior and inferior field changes, unreliable field OS: ? Early superior and inferior field changes Jeannette Napier MD OPH VISUAL FIELD Final Result * POCT lipid panel (10/08/2024 11:04 AM [...] AM CDT) eGFR 66 mL/min/1.7 3 m2 [facility] Comment: Interpretive Data Reference Interval Normal >/= 90 mL/min/1.73m2 Mildly decreased* 60 - 89 mL/min/1.73m2 Mildly to moderately decreased 45 - 59 mL/min/1.73m2 Moderately to severely decreased 30 - 44 mL/min/1.73m2 Severely decreased 15 - 29 mL/min/1.73m2 Kidney Failure < 15 mL/min/1.73m2 *Relative to young adult level If -Mongolian multiply value by 1.16. Estimated glomerular filtration [...] AM CDT 07/28/2017 6:15 AM CDT Narrative [facility] - 07/28/2017 6:44 AM CDT Nani Brown NP LAB BLOOD ORDERABLES Fin al Result [facility] [address] [place] [address] * Hemoglobin A1c (07/17/2017 1:45 PM ICT SYSTEMS TEST ENGINEER) Hgb A1C 5.3 4.0 - 5.6 % [facility] Estimated Average Glucose 105 mg/dL [facility] Comment: The ADA recommends reporting an estimated Average Glucose (eAG) with all Hemoglobin A1c results using the equation derived from a study of 507 normal and diabetic adults. Minority populations were underrepresented and children were not included. (Diabetes Care 31:9071-8791, 2008). The eAG is not equivalent to a fasting glucose. Blood specimen (specimen) 07/17/2017 1:45 PM ICT SYSTEMS TEST ENGINEER 07/17/2017 1:45 PM ICT SYSTEMS TEST ENGINEER Narrative [facility] - 07/17/2017 2:13 PM ICT SYSTEMS TEST ENGINEER Nicole Morales NP LAB BLOOD ORDERABLES Final Result [facility] [address] [place] [address] * COLONOSCOPY REPORT (10/30/2013) Anatomical Region Laterality Modality Other Narrative 10/30/2013 Ordered by an unspecified provider. Historical Provider GI PROCEDURE ORDERABLES F inal Result from Last 3 Months or Most Recently Relevant to Health Maintenance Insurance MEDICARE [facility] [place] [id number] MEDICARE [facility] MEDICARE MEDICARE [place] [facility] Advance Directives For more information, please contact: [phone] * Full Code (Latest Code Status on File) Date Activated Date Inactivated Comments 07/25/2017 2:45 PM 07/30/2017 4:19 PM Care Teams Agricultural Research Engineer Relationship Specialty Start Date End Date Prince Soto MD PCP - General 12/05/11 Hung Castellanos Jr., MD Medical Oncologist/Bobtailer Medical Oncology 11/27/19 Moy Silverio MD [address] [place] [address] Consulting Physician Rheumatology 10/05/22
--- OUTSIDE RECORDS SUMMARY | 2025-02-26 15:24 | XMS_ITS | Clinical Summary ---
Author Organization [facility] Kayode villagomez [facility] Address [address] [place] [address] Care Team Providers Care Excellence Consultant Name Role Phone Prince Soto MD [...] Encounters Date Type Department Care Team Description 02/26/2025 2:00 PM CDT Office Visit [facility] Oncology and Hematology - [place] [address] [place] [phone] Yves Balderas MD Malignant neoplasm of upper lobe of left lung (Primary Dx) 02/24/2025 Orders Only [facility] Oncology and Hematology - [place] [address] [place] [phone] Yves Balderas MD 02/23/2025 Orders Only [facility] Oncology and Hematology - [place] [address] Yves Balderas MD Malignant neoplasm of upper lobe of left lung (Primary Dx) 12/31/2024 External Device Data STL ABSTRACTION Provider, Abstract 12/29/2024 Orders Only [facility] Oncology and Hematology - [place] [address] [place] [address] Yves Balderas MD Malignant neoplasm of upper lobe of left lung (CMS/HCC) (Primary Dx) 12/17/2024 External Device Data STL ABSTRACTION Provider, Abstract [...] 9.6 oz) 02/26/2025 1:48 PM CDT Height 170.2 cm (5' 7) 01/10/2022 3:30 PM CDT Body Mass Index 26.25 01/10/2022 3:30 PM CDT Plan of Treatment Upcoming Encounters Date Type Department Care Team (Late st Contact Info) Description 01/06/2026 2:50 PM CDT Office Visit [facility] Oncology and Hematology - [place] [address] [facility] [address] [place] [address] Yves Balderas MD [address] [facility] [address] [place] [address] Health Maintenance Due Date Last Done Comments DIABETES ANNUAL FOOT EXAM 1965 DIABETES MICROALBUMIN ANNUAL SCREEN 1965 LDL CHOLESTEROL ANNUAL 1965 DTAP/TDAP/TD VACCINES (1 - Tdap) 1966 PNEUMOCOCCAL VACCINE 50+ YEA RS (1 of 2 - PCV) 1966 02/11/2017 Traditional Medicare (ACO) A nnual Wellness Visit 1966 ZOSTER VACCINE (2 of 3) 04/08/2017 02/11/2017 OSTEOPOROSIS SCREENING 11/17/2019 11/16/2014 RSV VACCINE (60+ or ) (1 - 1-dose 75+ series) 2022 INFLUENZA VACCINE (#1) 2024 02/11/2018 DIABETES HBA1C Q 6 MONTHS 01/25/20252024, 03/10/2024, 10/18/2023, Additional history exists DIABETES ANNUAL RETINAL EXAM 07/30/2025, 07/03/2023, 06/01/2021, Additional history exists COLORECTAL SCREENING Discontinued 01/22/2019 Colorectal Cancer Screening Discontinued FIT-DNA Q 3 years Discontinued FIT/FOBT Q 1 year Discontinued Flex Sig/CT Colonography Q 5 years Discontinued Procedures Procedure Name Priority Date/Time Associated Diagnosis Comments XR CHEST LAT 1 VW Routine 02/23/2025 7:35 AM CDT from Last 3 Months Results * XR CHEST LAT 1 VW (02/23/2025 7:35 AM CDT) Anatomical Region Laterality Modality Chest Other Yves Balderas MD DIAGNOSTIC IMAGING ORDERABLES F inal Result from Last 3 Months Insurance MEDICARE PART A AND B [facility] TRADITIONAL AETNA CHOICE POS II [facility] [place] [place] [address] Care Teams Excellence Consultant Relationship Specialty Start Date End Date Prince Soto MD [address] [place] [address] PCP - General Internal Medicine 01/14/20
--- OUTSIDE RECORDS SUMMARY | 2025-02-26 15:24 | XMS_ITS ---
Author Organization [facility] Address [address] [place] [address] Care Team Providers Care Employee Relations Administrator Name Role Phone Prince Soto MD Primary Care Provider Emanuel Alvarado MD, Hung Unavailable [phone] Moy Silverio MD Unavailable Active Problems Problem Noted Date Diagnosed Date [...] months Assessment & Plan (05/28/2024 9:23 PM LOCUM TENENS): New pt referred by Dr. Bragg for [...] Plan (02/12/2025 7:45 AM CDT): Local DFE Current Treatment and Therapy Plans No current plan information found. Past Treatment and Therapy Plans No past plan information found. Lifetime Dose Tracking * Chemical Lifetime Dose Automatic Entry Manual Entr y Fluoro Time 1.633 minutes 1.633 minutes 0 minutes
--- OUTSIDE RECORDS SUMMARY | 2025-02-26 15:24 | XMS_ITS | Encounter Summary ---
Author Organization [facility] [place] Address [address] [place] [address] Care Team Providers Care Therapy Administrative Assistant Name Role Phone Prince Soto MD Primary Care Provider + Encounter Details Date Type Department Care Team (Late st Contact Info) Description 02/24/2025 Orders Only [facility] Oncology and Hematology [facility] [address] [place] [address] Yves Balderas MD [address] [place] [phone] Social History Tobacco Use Types Packs/Day Years [...] Description 01/06/2026 2:50 PM CDT Office Visit [facility] Oncology and Hematology [address] [place] [address] Yves Balderas MD [address] [place] [address] documented as of this encounter Procedures Procedure Name Priority Date/Time Associated Diagnosis Comments XR CHEST LAT 1 VW Routine 02/23/2025 7:35 AM CDT documented in this encounter Results * XR CHEST LAT 1 VW (02/23/2025 7:35 AM CDT) Anatomical Region Laterality Modality Chest Other Yves Balderas MD DIAGNOSTIC IMAGING ORDERABLES F inal Result documented in this encounter Visit Diagnoses Not on filedocumented in this encounter Care Teams Therapy Administrative Assistant Relationship Specialty Start Date End Date Prince Soto MD [address] [place] [address] PCP - General Internal Medicine 01/14/20 documented as of this encounter
[2025-02-26 16:25] LABS: Alanine Aminotransferase 35 U/L (6-35); Albumin Level 4.2 g/dL (3.5-5.1); Alkaline Phosphatase 91 U/L (38-126); Anion Gap 9 mmol/L (4-12); Aspartate Amino Transferase 63 U/L (14-36); Bilirubin,Total 0.6 mg/dL (0.2-1.3); Blood Urea Nitrogen 25 mg/dL (7-17); Calcium 9.7 mg/dL (8.4-10.2); Carbon Dioxide 22 mmol/L (22-30); Chloride 103 mmol/L (98-107); Estimated Glomerular Filt Rate 31; Glucose 99 mg/dL (65-110); Potassium 5.6 mmol/L (3.4-5.0); Sodium 134 mmol/L (137-145); Total Protein 7.1 g/dL (6.3-8.2)
== END 2025-02-26 13:31 | disposition home or self-care (01) ==
LOC: ANHLAB 13:31
PROVIDERS: PCP Internal Medicine Hematology & Oncology; Visit Provider Internal Medicine Hematology & Oncology
DX: C34.12 Malignant neoplasm of upper lobe, left bronchus or lung (principal)
CPT/HCPCS: 36415; 80047; 80053; 85025